=== PATIENT | female | born 1955 | race Caucasian/White ===

== ENCOUNTER 2017-12-09 11:48 | Day surgery (SDC) | payer OTHER ==
[~2017-12-09] VITALS: Ht 154.9 cm; Wt 107.0 kg
[~2017-12-09 11:48] MED LIST: AMOCLA500 PO; ATOR10 PO; BUME2 PO; FOLI1 PO; GABA100 PO; K-Dur20 MEQ PO; LACT10SY PO; LEVSOD50 PO; Lasix40 MG PO; MERIBIN5 MG PO; METO2.5 PO; MUPI2TC TOP; Mupirocin22 GM TP; NADO20 PO; Omeprazole20 M1 PO; POTCHL20ER PO; Prinivil10 MG PO; ROPI.25 PO; SPIR25 PO; SULTRIDS PO; TRAM50 PO
== END 2017-12-09 13:15 | disposition home or self-care (01) ==
LOC: ORSCSDS 11:48
PROVIDERS: Internal Medicine Gastroenterology
PROC: 0DJ08ZZ Inspection of Upper Intestinal Tract, Via Natural or Artificial Opening Endoscopic (ICD-10-PCS; principal; 2017-12-09 13:00)
DX: I85.00 Esophageal varices without bleeding (principal); K76.6 Portal hypertension; K31.89 Other diseases of stomach and duodenum; I10 Essential (primary) hypertension; E11.9 Type 2 diabetes mellitus without complications; K20.9 Esophagitis, unspecified; G47.33 Obstructive sleep apnea (adult) (pediatric); K74.60 Unspecified cirrhosis of liver; E66.01 Morbid (severe) obesity due to excess calories; Z68.41 Body mass index [BMI] 40.0-44.9, adult; Z79.899 Other long term (current) drug therapy
CPT/HCPCS: 82947; J7120

== ENCOUNTER 2018-10-22 10:18 | Day surgery (SDC) | payer OTHER ==
[~2018-10-22] VITALS: Ht 154.9 cm; Wt 117.6 kg
[~2018-10-22 10:18] MED LIST changes: +BUME2; +NADO20
--- NOTE | 2018-10-22 12:04 | NUR ---
10/22/18 1204 Lela López LATE ENTRY: PT UPDATED OF DELAY IN START TIME DUE TO LAST CASE RUNNING LONGER THAN EXPECTED. BED IN LOW, LOCKED POSITION-CALL LIGHT IN REACH.
== END 2018-10-22 12:50 | disposition home or self-care (01) ==
LOC: ORSCSDS 10:18
PROVIDERS: Internal Medicine Gastroenterology
PROC: 0DB98ZX Excision of Duodenum, Via Natural or Artificial Opening Endoscopic, Diagnostic (ICD-10-PCS; principal; 2018-10-22 11:30)
DX: K74.69 Other cirrhosis of liver (principal); I85.00 Esophageal varices without bleeding; K76.6 Portal hypertension; K76.0 Fatty (change of) liver, not elsewhere classified; G47.33 Obstructive sleep apnea (adult) (pediatric); I10 Essential (primary) hypertension; E11.9 Type 2 diabetes mellitus without complications; E78.5 Hyperlipidemia, unspecified; E66.01 Morbid (severe) obesity due to excess calories; Z68.42 Body mass index [BMI] 45.0-49.9, adult; Z79.899 Other long term (current) drug therapy
CPT/HCPCS: 82947; 88305; J7120

== ENCOUNTER → 2019-06-29 | Outpatient (CLI) | payer OTHER ==
[~2019-06-29] MED LIST changes: +ATOR20; +Aspir 8181 MG PO; +Bumetanide1 MG PO; +LACT10SY; +METO25ER PO
[2019-06-29 11:46] LABS: BASOPHILS ABSOLUTE AUTO 0.06 K/mm3 (0.00-0.23); BASOPHILS PERCENT AUTO 1 % (0-2); EOSINOPHILS ABSOLUTE AUTO 0.15 K/mm3 (0.00-0.68); EOSINOPHILS PERCENT AUTO 3 % (0-6); Hemoglobin 11.8 g/dL (11.5-16.0); IMMATURE GRAN ABSOLUTE AUTO 0.02 K/mm3 (0.00-0.10); IMMATURE GRAN PERCENT AUTO 0 % (0-1); LYMPHOCYTES ABSOLUTE AUTO 1.09 K/mm3 (0.84-5.20); LYMPHOCYTES PERCENT AUTO 24 % (21-46); MONOCYTES ABSOLUTE AUTO 0.41 K/mm3 (0.16-1.47); MONOCYTES PERCENT AUTO 9 % (4-13); Mean Corpuscular HGB 32.2 pg (26.0-34.0); Mean Corpuscular HGB Conc 32.8 g/dL (31.5-36.5); Mean Corpuscular Volume 98 fL (80-100); Mean Platelet Volume 11.4 fL (9.1-12.4); NEUTROPHILS PERCENT AUTO 62 % (41-73); Platelet Count 70 K/mm3 (150-400); RDW Coefficient Variation 15.6 % (11.7-14.2); RDW Standard Deviation 56.5 fL (35.1-46.3); Red Blood Cell Count 3.66 M/mm3 (3.80-5.20); White Blood Cell Count 4.53 K/mm3 (4.00-11.30)
[2019-06-29 12:14] LABS: Alanine Aminotransfer (ALT/SGP 26 U/L (12-78); Albumin, Blood 2.5 g/dL (3.4-5.0); Albumin/Globulin Ratio 0.5 (0.8-1.8); Alk Phos 102 U/L (50-136); Anion Gap 8 mmol/L (6-16); Aspartate Aminotrans (AST/SGOT 38 U/L (12-37); Bilirubin, Total 2.4 mg/dL (0.1-1.0); Blood Urea Nitrogen 8 mg/dL (8-24); Bun/Creatinine Ratio 9.5 (12.0-20.0); CO2, Blood 24 mmol/L (21-32); Calcium, Blood 8.6 mg/dL (8.5-10.1); Chloride, Blood 108 mmol/L (98-108); Creatinine, Blood 0.85 mg/dL (0.40-1.00); Free Thyroxine 1.14 ng/dL (0.70-1.60); Globulin, Blood 4.6 g/dL (2.2-4.0); Glomerular Filtration Rate >60 (60-); Glucose, Blood 117 mg/dL (70-99); Sodium, Blood 140 mmol/L (136-145); Total Protein, Blood 7.1 g/dL (6.4-8.2)
== END ==
LOC: LAB SHORT 11:29 → LAB 11:29
PROVIDERS: Nurse Practitioner Family
DX: E03.9 Hypothyroidism, unspecified (principal); I12.9 Hypertensive chronic kidney disease with stage 1 through stage 4 chronic kidney disease, or unspecified chronic kidney disease; N18.3 Chronic kidney disease, stage 3 (moderate)
CPT/HCPCS: 80053; 84439; 84443; 85025

== ENCOUNTER 2019-08-26 07:22 | Day surgery (SDC) | payer OTHER ==
[~2019-08-26] VITALS: Wt 124.3 kg
[~2019-08-26 07:22] MED LIST changes: -ATOR20; -Aspir 8181 MG PO; -Bumetanide1 MG PO; -LACT10SY; -METO25ER PO
[2019-08-26] MEDS ORDERED: SPIR25 PO (07:46)
[2019-08-26] MEDS ORDERED: Bumetanide1 MG PO (07:48)
[2019-08-26] MEDS ORDERED: FOLI1 PO (07:48)
[2019-08-26] MEDS ORDERED: METO25ER PO (08:15)
[2019-08-26] MEDS ORDERED: ATOR20 (08:16)
[2019-08-26] MEDS ORDERED: Aspir 8181 MG PO (08:17)
[2019-08-26] MEDS ORDERED: LACT10SY (08:18)
--- NOTE | 2019-08-26 08:31 | NUR ---
Ambulatory in Day Surgery History, Chart, Medications and Allergies reviewed before start of procedure.Lungs clear T/O to Auscultation. Patient confirms NPO status and agrees with scheduled surgery. Patient States Post-Procedure ride home has been arranged.
--- NOTE | 2019-08-26 09:10 | NUR ---
08/26/19 0910 Melva Byrd History, Chart, Medications and Allergies reviewed before start of procedure. MONITOR INTACT WITH CONTINUOUS PULSE OXIMETRY AND INTERMITTENT BP.
--- NOTE | 2019-08-26 10:28 | NUR ---
Patient up to Ambulate independently. Gait steady. Discharge instructions reviewed with patient. Patient verbalizes understanding. Copy given to patient to take home. Discharged via wheelchair to private car for ride home.
== END 2019-08-26 10:18 | disposition home or self-care (01) ==
LOC: ORSCMMR 07:22 → ORD 09:00 → ORSCMMR 09:00
PROVIDERS: Internal Medicine Gastroenterology
PROC: 0DBL8ZX Excision of Transverse Colon, Via Natural or Artificial Opening Endoscopic, Diagnostic (ICD-10-PCS; principal; 2019-08-26 09:00)
PROC: 0DBH8ZX Excision of Cecum, Via Natural or Artificial Opening Endoscopic, Diagnostic (ICD-10-PCS; principal; 2019-08-26 09:00)
PROC: 0DBK8ZX Excision of Ascending Colon, Via Natural or Artificial Opening Endoscopic, Diagnostic (ICD-10-PCS; principal; 2019-08-26 09:00)
DX: Z12.11 Encounter for screening for malignant neoplasm of colon (principal); D12.2 Benign neoplasm of ascending colon; D12.3 Benign neoplasm of transverse colon; K64.8 Other hemorrhoids; Z86.010 Personal history of colon polyps; K76.0 Fatty (change of) liver, not elsewhere classified; E03.9 Hypothyroidism, unspecified; I10 Essential (primary) hypertension; E11.9 Type 2 diabetes mellitus without complications; E78.5 Hyperlipidemia, unspecified; G47.33 Obstructive sleep apnea (adult) (pediatric); E66.01 Morbid (severe) obesity due to excess calories; Z68.43 Body mass index [BMI] 50.0-59.9, adult; Z79.899 Other long term (current) drug therapy
CPT/HCPCS: 82947; 88305; J2704; J7120

== ENCOUNTER 2019-10-10 05:51 | Day surgery (SDC) | payer OTHER ==
[~2019-10-10] VITALS: Ht 154.9 cm; Wt 118.0 kg
[~2019-10-10 05:51] MED LIST changes: +ATOR20; +Aspir 8181 MG PO; +Bumetanide1 MG PO; +Isosorbide Mono30 MG PO; +LACT10SY; +METO25ER PO
--- NOTE | 2019-10-10 08:05 | NUR ---
ASSUMED CARE OF PATIENT.
--- NOTE | 2019-10-10 09:30 | NUR ---
PT C/O RIGHT ARM FEELING SWOLLEN. 2 CC AIR REMOVED FROM TR BAND. RIGHT ARM MASSAGED. ARM IS SOFT. NO BLEEDING AT SITE.
--- NOTE | 2019-10-10 09:43 | NUR ---
ADDITIONAL 3 CC AIR REMOVED FROM TR BAND.
--- NOTE | 2019-10-10 10:00 | NUR ---
REMAINDER OF AIR REMOVED FROM TR BAND. NO BLEEDING AT SITE. RIGHT ARM SOFT NONTENDER.
[2019-10-10] MEDS ORDERED: SPIR25 PO (10:44)
[2019-10-10] MEDS ORDERED: POTCHL20ER PO (10:45)
--- NOTE | 2019-10-10 10:48 | NUR ---
AMBULATED TO BATHROOM. TOLERATED WELL. DRESSED FOR DISCHARGE.
--- NOTE | 2019-10-10 11:00 | NUR ---
TR BAND REMOVED. CLOT DOT AND IMMOBILIZER APPLIED.
--- NOTE | 2019-10-10 11:05 | NUR ---
DISCHARGE INSTRUCTIONS GIVEN WITH VERBAL AND WRITTEN UNDERSTANDING.
--- NOTE | 2019-10-10 11:30 | NUR ---
DISCHARGED HOME. AMBULATED TO [facility]. SLING APPLIED TO RIGHT ARM. DRIVING.
== END 2019-10-10 11:30 | disposition home or self-care (01) ==
LOC: MHTC 05:51
PROC: 4A023N7 Measurement of Cardiac Sampling and Pressure, Left Heart, Percutaneous Approach (ICD-10-PCS; principal; 2019-10-10)
PROC: B2111ZZ Fluoroscopy of Multiple Coronary Arteries using Low Osmolar Contrast (ICD-10-PCS; principal; 2019-10-10)
DX: I25.119 Atherosclerotic heart disease of native coronary artery with unspecified angina pectoris (principal); R06.00 Dyspnea, unspecified; I12.9 Hypertensive chronic kidney disease with stage 1 through stage 4 chronic kidney disease, or unspecified chronic kidney disease; N18.2 Chronic kidney disease, stage 2 (mild); E11.22 Type 2 diabetes mellitus with diabetic chronic kidney disease; E78.5 Hyperlipidemia, unspecified; E66.01 Morbid (severe) obesity due to excess calories; Z88.7 Allergy status to serum and vaccine; Z79.82 Long term (current) use of aspirin; Z79.899 Other long term (current) drug therapy
CPT/HCPCS: 93454; 99152; C1769; C1894; J1644; J2250; J3010; J7030; Q9967

== ENCOUNTER 2020-01-20 09:28 | Day surgery (SDC) | payer OTHER ==
[~2020-01-20] VITALS: Ht 154.9 cm; Wt 106.4 kg
[~2020-01-20 09:28] MED LIST changes: -ATOR20; +ATOR20 PO; +ONDA4 PO; +PANTOPRAZOLE SO40 M1 PO
[2020-01-20] MEDS ORDERED: TORSE20 PO (10:20)
[2020-01-20] MEDS ORDERED: METO5 PO (10:20)
--- NOTE | 2020-01-20 10:45 | NUR ---
History, Chart, Medications and Allergies reviewed before start of procedure. Lungs clear T/O to Auscultation. Patient confirms NPO status and agrees with scheduled surgery. Pre-Op teaching done. Pt verbalizes understanding. Patient States Post-Procedure ride home has been arranged.
--- NOTE | 2020-01-20 11:00 | NUR ---
01/20/20 Melva Vila PROCEDURE ROOM ENDO ROOM #1.
--- NOTE | 2020-01-20 11:44 | NUR ---
1140- UP TO DRESS INDEPENDANTLY. STATES SHE DOES NOT FEEL DIZZY SITTING ON EDGE OF BED. GAIT STEADY 1145- REPORT GIVEN TO RADHA AREVALO, RADHA LARSEN RN.
--- NOTE | 2020-01-20 11:51 | NUR ---
PT A&OX4, VSS, BOB PO, DENIES N&V, DENIES PAIN AT THIS TIME, IV DC'D. Discharge instructions reviewed with patient. Patient verbalizes understanding. Copy given to patient to take home. Patient States Post-Procedure ride home has been arranged. TOOK PT OUT VIA WC.
== END 2020-01-20 23:27 | disposition home or self-care (01) ==
LOC: ORSCMMR 09:28 → ORD 12:00 → ORSCMMR 12:00
PROVIDERS: Internal Medicine Gastroenterology
PROC: 06L38CZ Occlusion of Esophageal Vein with Extraluminal Device, Via Natural or Artificial Opening Endoscopic (ICD-10-PCS; principal; 2020-01-20 11:00)
DX: K74.60 Unspecified cirrhosis of liver (principal); Z13.810 Encounter for screening for upper gastrointestinal disorder; K76.6 Portal hypertension; K31.89 Other diseases of stomach and duodenum; E78.5 Hyperlipidemia, unspecified; G47.33 Obstructive sleep apnea (adult) (pediatric); E11.9 Type 2 diabetes mellitus without complications; I25.10 Atherosclerotic heart disease of native coronary artery without angina pectoris; I10 Essential (primary) hypertension; E66.01 Morbid (severe) obesity due to excess calories; Z68.43 Body mass index [BMI] 50.0-59.9, adult; Z79.82 Long term (current) use of aspirin; Z79.899 Other long term (current) drug therapy
CPT/HCPCS: 82947; J2704; J7120

== ENCOUNTER 2020-01-24 13:34 | Inpatient (IN) | payer OTHER ==
[~2020-01-24] VITALS: Ht 154.9 cm; Wt 101.4 kg
[~2020-01-24 13:34] MED LIST changes: -CEPH500 PO; -Klor-Con 1010 MEQ PO; -MAG6464 MG PO; -MIRALAX17 G2 PO; -SENNA PLUS TAB1 EACH PO
[2020-01-24] MEDS ORDERED: TORSE20 PO (13:59)
[2020-01-24] MEDS ORDERED: Klor-Con 1010 MEQ PO (13:59)
[2020-01-24] MEDS ORDERED: MAG6464 MG PO (14:00)
[2020-01-24 14:41] LABS: Magnesium, Blood 1.8 mg/dL (1.6-2.4); Phosphorus, Blood 2.7 mg/dL (2.5-4.9)
[2020-01-24 17:45] LABS: Source, Urine Clean Catch
[2020-01-24 17:48] LABS: Bilirubin, Urine Neg (Neg); Blood, Urine 1+ (Neg); Glucose Qualitative, Urine Neg (Neg); Ketones, Urine Neg (Neg); Leukocyte Esterase, Urine Neg (Neg); Nitrite, Urine Neg (Neg); Protein, Urine Neg (Neg); Specific Gravity, Urine 1.015 (1.003-1.022); Urobilinogen, Urine 3+ (Normal)
[2020-01-24 17:57] LABS: Appearance, Urine Clear (Clear); Color, Urine Amber (P-Yellow)
[2020-01-24 17:58] LABS: White Blood Cells, Urine 0-2 /hpf (0-5)
[2020-01-24 17:59] LABS: Bacteria Many /hpf; Squamous Epithelial Cells Few /hpf (Few)
--- NOTE | 2020-01-24 18:43 | NUR ---
PT ARRIVAL... PT ARRIVED ON UNIT VIA GURNEY. PT IS A&Ox3 WITH MOMENTS OF FORGETFULNESS AND NONSENSICAL STATEMENTS. PT IS AWARE OF THIS AND BECOMES EMBARRASED BY THIS. PT'S VS STABLE AT THIS TIME. PT DENIES CHEST PAIN/PRESSURES N/V OR SOB. PT IS SBA FROM THE GURNEY TO THE BED. L/S CLEAR T/O ON RA. BT PRESENT AND NORMOACTIVE, ABD IS MILD DISTENDED AND TENDER TO PALP. TRACE EDEMA IS NOTED TO THE PT'S BLE. CALL LIGHT IN REACH WILL CONTINUE TO MONITOR UNTIL REPORT IS GIVEN TO ONCOMING RN.
[2020-01-24 18:58] LABS: U Amphetamine Screen Not Detected; U Barbituate Screen Not Detected; U Benzodiazapine Screen Not Detected; U Buprenorphine Screen Not Detected; U Cannabinoids Screen Not Detected; U Cocaine Screen Not Detected; U Methadone Screen Not Detected; U Methamphetamine Screen Not Detected; U Opiates Screen DETECTED; U Oxycodone Screen Not Detected; U Phencyclidine Screen Not Detected; U Propoxyphene Screen Not Detected
--- NOTE | 2020-01-24 19:00 | NUR ---
Assumed care Received report from MICKEY Garay and care was assumed at 1900. VSS. SBP 130. Pt is alert and oriented, conversing with staff; response time is slightly delayed, but pt is answering questions appropriately. Potassium and NS infusing into left forearm IV, per orders/eMAR. At this time, pt denies CP/pressure, palpitations, SOB, nausea, vomiting and/or abdominal pain. No acute concerns to note at shift start. See shift assessment for detailed assessment.
[2020-01-24 22:41] LABS: Potassium, Blood 2.7 mmol/L (3.5-5.5); Troponin I 0.141 ng/mL (0.000-0.040)
[2020-01-25 04:21] LABS: BASOPHILS ABSOLUTE AUTO 0.04 K/mm3 (0.00-0.23); BASOPHILS PERCENT AUTO 1 % (0-2); EOSINOPHILS ABSOLUTE AUTO 0.19 K/mm3 (0.00-0.68); EOSINOPHILS PERCENT AUTO 4 % (0-6); Hematocrit 30.9 % (33.0-51.0); Hemoglobin 10.3 g/dL (11.5-16.0); IMMATURE GRAN ABSOLUTE AUTO 0.03 K/mm3 (0.00-0.10); IMMATURE GRAN PERCENT AUTO 1 % (0-1); LYMPHOCYTES ABSOLUTE AUTO 1.09 K/mm3 (0.84-5.20); LYMPHOCYTES PERCENT AUTO 21 % (21-46); MONOCYTES ABSOLUTE AUTO 0.72 K/mm3 (0.16-1.47); MONOCYTES PERCENT AUTO 14 % (4-13); Mean Corpuscular HGB 32.6 pg (26.0-34.0); Mean Corpuscular HGB Conc 33.3 g/dL (31.5-36.5); Mean Platelet Volume 11.4 fL (9.1-12.4); NEUTROPHILS ABSOLUTE AUTO 3.08 K/mm3 (1.96-9.15); NEUTROPHILS PERCENT AUTO 60 % (41-73); Platelet Count 79 K/mm3 (150-400); RDW Coefficient Variation 15.8 % (11.7-14.2); RDW Standard Deviation 56.5 fL (35.1-46.3); Red Blood Cell Count 3.16 M/mm3 (3.80-5.20); White Blood Cell Count 5.15 K/mm3 (4.00-11.30)
[2020-01-25 04:24] LABS: Mean Corpuscular Volume 98 fL (80-100)
[2020-01-25 04:35] LABS: Albumin, Blood 1.9 g/dL (3.4-5.0); Anion Gap 4 mmol/L (6-16); Blood Urea Nitrogen 30 mg/dL (8-24); Bun/Creatinine Ratio 17.4 (12.0-20.0); CO2, Blood 43 mmol/L (21-32); Calcium, Blood 7.9 mg/dL (8.5-10.1); Chloride, Blood 83 mmol/L (98-108); Creatinine, Blood 1.72 mg/dL (0.40-1.00); Glomerular Filtration Rate 32 (60-); Glucose, Blood 108 mg/dL (70-99); Magnesium, Blood 1.7 mg/dL (1.6-2.4); Phosphorus, Blood 2.2 mg/dL (2.5-4.9); Potassium, Blood 2.7 mmol/L (3.5-5.5); Sodium, Blood 130 mmol/L (136-145)
--- NOTE | 2020-01-25 06:21 | NUR ---
Shift Summary No acute events and/or changes occurred throughout the shift. VSS. SBP 123. O2 saturation >95% on RA. No changes in mentation were noted; pt remained alert and oriented, conversing with staff and answering question appropriately. Pt with intermittent complaints of nausea and abdominal pain. Zofran was administered per orders/eMAR, in addition to patient-initated bedside dangling and ambulation to the bathroom which she reported as therapeutic. Recent labs revealed no improvement in potassium level. Dr. Bejarano was informed and potassium was continued per orders. Pt denies CP/pressure, palpitation, SOB, diarrhea, and/or vomiting. Overall, pt is deconditioned with generalized weakness, requiring SBA. No acute changes and/or concerns this shift. Refer to shift assessment for detailed assessment.
--- NOTE | 2020-01-25 08:38 | NUR ---
AM NOTE... ASSUMED CARE OF PT APROX 0700. PT IS A&Ox4 AND SBA IN THE ROOM. PT WAS ADMITTED FOR HYPOKALEMIA. PT'S LAST POTASSIUM LEVEL WAS AT 2.7. PT'S VS STABLE AT THIS TIME. PT STATES "I FEEL WAY WORSE THAN I DID YESTERDAY." PT C/O OF INCREASED WEAKENESS AND SOME NAUSEA THIS AM. PT HAS 1+ EDEMA TO HER BLE AND BUE WELL GENERALIZED. BT PRESENT AND HYPOACTIVE ABD IS MODERATLY DISTENDED AND TENDER TO PALP. POTASSIUM GTT HAD TO BE SLOWED DOWN D/T PAIN AT THE IV SITE, WILL ATTEMPTED TO GAIN NEW IV ACCESS. CALL LIGHT IN REACH WILL CONTINUE TO MONITOR.
[2020-01-25 12:14] LABS: Albumin, Blood 1.9 g/dL (3.4-5.0); Anion Gap 6 mmol/L (6-16); Blood Urea Nitrogen 28 mg/dL (8-24); Bun/Creatinine Ratio 16.7 (12.0-20.0); CO2, Blood 42 mmol/L (21-32); Calcium, Blood 8.1 mg/dL (8.5-10.1); Chloride, Blood 85 mmol/L (98-108); Creatinine, Blood 1.68 mg/dL (0.40-1.00); Glomerular Filtration Rate 33 (60-); Glucose, Blood 139 mg/dL (70-99); Phosphorus, Blood 2.1 mg/dL (2.5-4.9); Potassium, Blood 2.6 mmol/L (3.5-5.5); Sodium, Blood 133 mmol/L (136-145)
--- NOTE | 2020-01-25 18:44 | NUR ---
SHIFT SUMMARY... NO ACUTE NEGATIVE CHANGES NOTED ON TELE. VS HAVE BEEN STABLE T/O SHIFT. PT HAS BEEN SWITCHED TO PO POTASSIUM D/T PAIN AND BURNING AT THE IV SITE. PT HAS BEEN UP IN THE CHAIR FOR MEALS AND TO THE BSC. PT STATES SHE FEELS MORE "TIRED" TODAY THAN SHE WAS YESTERDAY BUT ALSO "FEELS BETTER." CALL LIGHT IN REACH WILL CONTINUE TO MONITOR UNTIL REPORT IS GIVEN TO ONCOMING RN.
[2020-01-26 03:37] LABS: Hematocrit 31.4 % (33.0-51.0); Hemoglobin 10.4 g/dL (11.5-16.0)
[2020-01-26 03:54] LABS: Albumin, Blood 1.9 g/dL (3.4-5.0); Anion Gap 2 mmol/L (6-16); Blood Urea Nitrogen 25 mg/dL (8-24); Bun/Creatinine Ratio 15.5 (12.0-20.0); CO2, Blood 41 mmol/L (21-32); Chloride, Blood 94 mmol/L (98-108); Creatinine, Blood 1.61 mg/dL (0.40-1.00); Glomerular Filtration Rate 34 (60-); Glucose, Blood 99 mg/dL (70-99); Magnesium, Blood 1.9 mg/dL (1.6-2.4); Sodium, Blood 137 mmol/L (136-145)
--- NOTE | 2020-01-26 06:05 | NUR ---
END OF SHIFT SUMMARY NO ACUTE CHANGES OCCURRED DURING THIS SHIFT. VSS. OXYGEN SAT >92% ON RA. PT UP SEVERAL TIME TO AMBULATE TO THE BATHROOM. PT USED WALKER TO AMBULATE. PT MORNING LABS SHOW POTASSIUM UNCHANGED AT 3. PT DENIES PAIN, CHEST PAIN, SOB. WILL CONTINUE TO MONITOR UNTIL END OF SHIFT. CALL LIGHT WITHIN REACH. BED IN LOWEST POSITION.
--- NOTE | 2020-01-26 08:16 | NUR ---
AM NOTE... ASSUMED CARE OF PT APROX 0700. PT IS A&Ox4 WITH MOMENTS OF FORGETFULNESS. PT WAS ADMITTED FOR HYPOKALEMIA, CURRENT LABS SHOW K+ IS A 3.0, PROVIDERS AWARE. L/S CLEAR T/O ON RA. BT PRESENT AND HYPOACTIVE ABD IS MOD DISTENDED SLIGHLTY FIRM BUT NONTENDER TO PALP. PT STATES SHE HAS NOT HAD A BM SINCE THE FIRST, WILL START BOWEL CARE. PT HAS 1+ EDEMA TO HER BLE AND BUE. SKIN HAS A SLIGHT JAUNDICED LOOK. PT HAS BEEN SBA W/FWW TO THE CHAIR AND INTO THE BATHROOM. CALL LIGHT IN REACH WILL CONTINUE TO MONITOR.
--- NOTE | 2020-01-26 17:30 | NUR ---
SHIFT SUMMARY- PT IS ALERT AND PLESANT SHE HAS SOME INTERMITENT CONFUSTION SHE WAS TRANSFERED FROM PCU. SHE DENIES ANY PAIN AT THIS TIME. SHE IS USING THE BEDSIDE CAMMODE. SHE IS EATING AND DRINKING WELL
[2020-01-27 05:02] LABS: Hematocrit 33.1 % (33.0-51.0); Hemoglobin 10.9 g/dL (11.5-16.0)
[2020-01-27 05:18] LABS: Anion Gap 3 mmol/L (6-16); Blood Urea Nitrogen 19 mg/dL (8-24); Bun/Creatinine Ratio 12.9 (12.0-20.0); CO2, Blood 35 mmol/L (21-32); Calcium, Blood 8.5 mg/dL (8.5-10.1); Chloride, Blood 98 mmol/L (98-108); Creatinine, Blood 1.47 mg/dL (0.40-1.00); Glomerular Filtration Rate 38 (60-); Glucose, Blood 112 mg/dL (70-99); Magnesium, Blood 1.8 mg/dL (1.6-2.4); Phosphorus, Blood 2.3 mg/dL (2.5-4.9); Potassium, Blood 3.5 mmol/L (3.5-5.5); Sodium, Blood 136 mmol/L (136-145)
--- NOTE | 2020-01-27 05:54 | NUR ---
SHIFT SUMMARY ASSUMED CARE OF PT AT 1900. PT IS A/OX3 WITH SOME CONFUSION. DENIES N/T IN EXTREMITES. HEART SOUNDS REGULAR, TELE SHOWS SINUS @ 72, DENIES CP. LUNG SOUNDS CLEAR, DENIES SOB. PT IS 1P SBA TO BATHROOM, URINE CLEAR AND YELLOW. C/O BEING CONTIPATED, MEDICATED PER EMAR. POWERGLIDES DRAWS BLOOD. NOTIFIED DR BALBUENA OF IMPROVED POTASSIUM @ 4.0. STATED TO MONITOR MORNING LABS. NO ACUTE EVENTS DURING THE NIGHT. PT SLEPT MOST OF THE NIGHT. CALL LIGHT IN REACH, BED IN LOWEST POSTION, WILL CONTINUE TO MONITOR UNTIL DAYSHIFT NURSE ARRIVES.
[2020-01-27] MEDS ORDERED: SENNA PLUS TAB1 EACH PO (16:34)
[2020-01-27] MEDS ORDERED: LACT10SY PO (16:35)
[2020-01-27] MEDS ORDERED: MIRALAX17 G2 PO (16:39)
[2020-01-27] MEDS ORDERED: CEPH500 PO (16:39)
--- NOTE | 2020-01-27 19:59 | NUR ---
PT DISCHARGED FROM THE UNIT. LEFT VIA WHEELCHAIR. WILL DRIVE HOME. MEDICATIONS FAXED TO PHARMACY. INSTRUCTED ON FOLLOW UP APTS. IV AND POWERGLIDE REMOVED.
== END 2020-01-27 18:56 | disposition home or self-care (01) | DRG 683 ==
LOC: ER 13:34 → PCU 16:33 → ERHOLD 16:33 → PCU 18:08 → MEDS 01-26 12:15
PROVIDERS: Internal Medicine Nephrology; Physician Assistant; ADMIT Student in an Organized Health Care Education/Training Program
DX: N17.9 Acute kidney failure, unspecified (principal); N39.0 Urinary tract infection, site not specified; C92.10 Chronic myeloid leukemia, BCR/ABL-positive, not having achieved remission; Z68.41 Body mass index [BMI] 40.0-44.9, adult; E87.1 Hypo-osmolality and hyponatremia; E87.6 Hypokalemia; N18.3 Chronic kidney disease, stage 3 (moderate); E11.22 Type 2 diabetes mellitus with diabetic chronic kidney disease; B96.20 Unspecified Escherichia coli [E. coli] as the cause of diseases classified elsewhere; K74.69 Other cirrhosis of liver; E66.9 Obesity, unspecified; I12.9 Hypertensive chronic kidney disease with stage 1 through stage 4 chronic kidney disease, or unspecified chronic kidney disease; K72.90 Hepatic failure, unspecified without coma; E03.9 Hypothyroidism, unspecified; I25.10 Atherosclerotic heart disease of native coronary artery without angina pectoris; D63.1 Anemia in chronic kidney disease; E83.39 Other disorders of phosphorus metabolism; E88.09 Other disorders of plasma-protein metabolism, not elsewhere classified; E86.9 Volume depletion, unspecified; R79.89 Other specified abnormal findings of blood chemistry; N25.81 Secondary hyperparathyroidism of renal origin; Z79.82 Long term (current) use of aspirin
CPT/HCPCS: 36415; 76770; 80069; 81001; 82140; 82947; 83735; 84100; 84132; 84439; 84443; 84484; 85014; 85018; 85025; 87077; 87086; 87186; 93005; 93010; 96365; 97116; 97162; 99285-25; A9270; A9270-GY; G0480; J1650; J3480; J7030; J7050; J7060

== ENCOUNTER → 2020-01-24 | Outpatient (CLI) | payer OTHER ==
[~2020-01-24] MED LIST changes: +CEPH500 PO; +Klor-Con 1010 MEQ PO; +MAG6464 MG PO; +METO5 PO; +MIRALAX17 G2 PO; +SENNA PLUS TAB1 EACH PO; +TORSE20 PO
[2020-01-24 12:50] LABS: Alanine Aminotransfer (ALT/SGP 27 U/L (12-78); Albumin, Blood 2.5 g/dL (3.4-5.0); Albumin/Globulin Ratio 0.4 (0.8-1.8); Alk Phos 120 U/L (40-126); Aspartate Aminotrans (AST/SGOT 60 U/L (12-37); Bilirubin, Total 5.2 mg/dL (0.1-1.0); Blood Urea Nitrogen 33 mg/dL (8-24); Bun/Creatinine Ratio 14.4 (12.0-20.0); Chloride, Blood 85 mmol/L (98-108); Creatinine, Blood 2.29 mg/dL (0.40-1.00); Globulin, Blood 6.4 g/dL (2.2-4.0); Glomerular Filtration Rate 22 (60-); Glucose, Blood 123 mg/dL (70-99); Sodium, Blood 134 mmol/L (136-145); Total Protein, Blood 8.9 g/dL (6.4-8.2)
[2020-01-24 12:51] LABS: Anion Gap Unable to Calculate mmol/L (6-16)
[2020-01-24 12:52] LABS: CO2, Blood 48 mmol/L (21-32); Potassium, Blood 1.9 mmol/L (3.5-5.5)
[2020-01-24 12:54] LABS: BASOPHILS ABSOLUTE AUTO 0.04 K/mm3 (0.00-0.23); BASOPHILS PERCENT AUTO 1 % (0-2); EOSINOPHILS ABSOLUTE AUTO 0.06 K/mm3 (0.00-0.68); EOSINOPHILS PERCENT AUTO 1 % (0-6); Hematocrit 35.6 % (33.0-51.0); Hemoglobin 12.3 g/dL (11.5-16.0); IMMATURE GRAN ABSOLUTE AUTO 0.03 K/mm3 (0.00-0.10); IMMATURE GRAN PERCENT AUTO 1 % (0-1); LYMPHOCYTES ABSOLUTE AUTO 0.66 K/mm3 (0.84-5.20); LYMPHOCYTES PERCENT AUTO 13 % (21-46); MONOCYTES ABSOLUTE AUTO 0.73 K/mm3 (0.16-1.47); MONOCYTES PERCENT AUTO 14 % (4-13); Mean Corpuscular HGB Conc 34.6 g/dL (31.5-36.5); Mean Corpuscular Volume 95 fL (80-100); NEUTROPHILS ABSOLUTE AUTO 3.58 K/mm3 (1.96-9.15); NEUTROPHILS PERCENT AUTO 70 % (41-73); RDW Coefficient Variation 15.2 % (11.7-14.2); Red Blood Cell Count 3.73 M/mm3 (3.80-5.20)
[2020-01-24 13:04] LABS: Mean Platelet Volume 10.5 fL (9.1-12.4); Platelet Count 97 K/mm3 (150-400)
== END ==
LOC: LAB EV 12:36 → LAB SHORT 12:36
PROVIDERS: Emergency Medicine
DX: K72.90 Hepatic failure, unspecified without coma (principal); R11.2 Nausea with vomiting, unspecified
CPT/HCPCS: 80053; 82140; 83690; 85025

== ENCOUNTER 2020-02-03 13:33 | Emergency (ER) | payer OTHER ==
[~2020-02-03] VITALS: Ht 154.9 cm; Wt 101.6 kg
[~2020-02-03 13:33] MED LIST changes: +CEPH500 PO; +Klor-Con 1010 MEQ PO; +MAG6464 MG PO; +MIRALAX17 G2 PO; +SENNA PLUS TAB1 EACH PO
[2020-02-03 15:00] LABS: BASOPHILS ABSOLUTE AUTO 0.07 K/mm3 (0.00-0.23); BASOPHILS PERCENT AUTO 1 % (0-2); EOSINOPHILS ABSOLUTE AUTO 0.07 K/mm3 (0.00-0.68); EOSINOPHILS PERCENT AUTO 1 % (0-6); Hematocrit 41.8 % (33.0-51.0); Hemoglobin 13.8 g/dL (11.5-16.0); IMMATURE GRAN ABSOLUTE AUTO 0.04 K/mm3 (0.00-0.10); IMMATURE GRAN PERCENT AUTO 0 % (0-1); LYMPHOCYTES ABSOLUTE AUTO 1.47 K/mm3 (0.84-5.20); LYMPHOCYTES PERCENT AUTO 16 % (21-46); MONOCYTES ABSOLUTE AUTO 0.95 K/mm3 (0.16-1.47); MONOCYTES PERCENT AUTO 10 % (4-13); Mean Corpuscular HGB 32.5 pg (26.0-34.0); Mean Corpuscular Volume 99 fL (80-100); Mean Platelet Volume 10.9 fL (9.1-12.4); NEUTROPHILS ABSOLUTE AUTO 6.83 K/mm3 (1.96-9.15); NEUTROPHILS PERCENT AUTO 73 % (41-73); Platelet Count 95 K/mm3 (150-400); RDW Coefficient Variation 16.7 % (11.7-14.2); RDW Standard Deviation 60.3 fL (35.1-46.3); Red Blood Cell Count 4.24 M/mm3 (3.80-5.20); White Blood Cell Count 9.43 K/mm3 (4.00-11.30)
[2020-02-03 15:30] LABS: Albumin, Blood 2.1 g/dL (3.4-5.0); Albumin/Globulin Ratio 0.3 (0.8-1.8); Bilirubin, Total 3.3 mg/dL (0.1-1.0); Bun/Creatinine Ratio 17.3 (12.0-20.0); Calcium, Blood 8.6 mg/dL (8.5-10.1); Creatinine, Blood 2.31 mg/dL (0.40-1.00); Globulin, Blood 6.5 g/dL (2.2-4.0); Potassium, Blood 4.6 mmol/L (3.5-5.5); Total Protein, Blood 8.6 g/dL (6.4-8.2)
[2020-02-03 16:17] LABS: Source, Urine Clean Catch
[2020-02-03 16:20] LABS: Blood, Urine 3+ (Neg); Glucose Qualitative, Urine Neg (Neg); Ketones, Urine 1+ (Neg); Leukocyte Esterase, Urine 1+ (Neg); Nitrite, Urine Neg (Neg); Protein, Urine 2+ (Neg); Urobilinogen, Urine 1+ (Normal)
[2020-02-03 16:40] LABS: Appearance, Urine Hazy (Clear); Bilirubin, Urine 1+ (Neg); Color, Urine Yellow (P-Yellow)
[2020-02-03 16:42] LABS: Bacteria Mod /hpf; Squamous Epithelial Cells Many /hpf (Few)
[2020-02-03 16:43] LABS: Amorphous Light (0-Heavy)
[2020-02-03 16:44] LABS: Granular Casts 25-50 /lpf (0)
[2020-02-03 18:22] LABS: Troponin I 0.063 ng/mL (0.000-0.040)
[2020-02-03 18:23] LABS: Thyroid Stimulating Hormone 16.6 uIU/mL (0.360-4.800)
[2020-02-03] MEDS ORDERED: Kristalose20 GM PO (19:13)
[2020-02-03] MEDS ORDERED: PROM25 PO (19:13)
[2020-02-03] MEDS ORDERED: BENZ100A PO (19:28)
== END 2020-02-03 19:32 | disposition home or self-care (01) ==
LOC: ER 13:33
PROVIDERS: Emergency Medicine; Physician Assistant
DX: I12.9 Hypertensive chronic kidney disease with stage 1 through stage 4 chronic kidney disease, or unspecified chronic kidney disease (principal); N18.3 Chronic kidney disease, stage 3 (moderate); R41.82 Altered mental status, unspecified; R79.89 Other specified abnormal findings of blood chemistry; R59.9 Enlarged lymph nodes, unspecified; E11.22 Type 2 diabetes mellitus with diabetic chronic kidney disease; Z88.7 Allergy status to serum and vaccine; Z79.899 Other long term (current) drug therapy; Z79.82 Long term (current) use of aspirin
CPT/HCPCS: 36415; 71046; 76705; 80053; 81001; 82140; 83690; 84443; 84484; 85025; 87086; 93005; 93010; 96374; 99284-25; J2405; J7030

== ENCOUNTER 2020-02-13 12:09 | Emergency (ER) | payer OTHER ==
[~2020-02-13] VITALS: Ht 154.9 cm; Wt 96.6 kg
[~2020-02-13 12:09] MED LIST changes: +BENZ100A PO; +Kristalose20 GM PO; +PROM25 PO
[2020-02-13 13:01] LABS: BASOPHILS ABSOLUTE AUTO 0.08 K/mm3 (0.00-0.23); BASOPHILS PERCENT AUTO 1 % (0-2); EOSINOPHILS ABSOLUTE AUTO 0.12 K/mm3 (0.00-0.68); EOSINOPHILS PERCENT AUTO 2 % (0-6); Hematocrit 37.1 % (33.0-51.0); IMMATURE GRAN ABSOLUTE AUTO 0.03 K/mm3 (0.00-0.10); IMMATURE GRAN PERCENT AUTO 0 % (0-1); LYMPHOCYTES ABSOLUTE AUTO 1.26 K/mm3 (0.84-5.20); LYMPHOCYTES PERCENT AUTO 18 % (21-46); MONOCYTES ABSOLUTE AUTO 0.58 K/mm3 (0.16-1.47); MONOCYTES PERCENT AUTO 8 % (4-13); Mean Corpuscular HGB 32.2 pg (26.0-34.0); Mean Corpuscular HGB Conc 32.3 g/dL (31.5-36.5); Mean Corpuscular Volume 100 fL (80-100); Mean Platelet Volume 10.9 fL (9.1-12.4); NEUTROPHILS ABSOLUTE AUTO 5.07 K/mm3 (1.96-9.15); NEUTROPHILS PERCENT AUTO 71 % (41-73); Platelet Count 86 K/mm3 (150-400); RDW Coefficient Variation 16.9 % (11.7-14.2); RDW Standard Deviation 61.6 fL (35.1-46.3); Red Blood Cell Count 3.73 M/mm3 (3.80-5.20); White Blood Cell Count 7.14 K/mm3 (4.00-11.30)
[2020-02-13 13:17] LABS: Albumin, Blood 1.9 g/dL (3.4-5.0); Albumin/Globulin Ratio 0.3 (0.8-1.8); Bilirubin, Total 2.8 mg/dL (0.1-1.0); Bun/Creatinine Ratio 15.5 (12.0-20.0); Calcium, Blood 8.3 mg/dL (8.5-10.1); Creatinine, Blood 2.45 mg/dL (0.40-1.00); Globulin, Blood 5.7 g/dL (2.2-4.0); International Normalized Ratio 1.44; Potassium, Blood 4.9 mmol/L (3.5-5.5); Prothrombin Time Results 15.1 Sec (9.7-11.5); Total Protein, Blood 7.6 g/dL (6.4-8.2)
[2020-02-13] MEDS ORDERED: LACT10SY PO (14:01)
[2020-02-13] MEDS ORDERED: ISOSORBIDE MONO30 MG PO (14:02)
[2020-02-13] MEDS ORDERED: ATOR40TA PO (14:02)
[2020-02-13] MEDS ORDERED: METO5 PO (14:03)
[2020-02-13] MEDS ORDERED: Bumetanide2 MG PO (14:03)
[2020-02-13] MEDS ORDERED: METOPROLOL SUCC25 MG PO (14:03)
[2020-03-08] MEDS ORDERED: CONSTULOSE10 GM/151 PO (11:46)
[2020-03-08] MEDS ORDERED: K-Dur10 MEQ PO (11:46)
[2020-03-08] MEDS ORDERED: TORSE20 PO (11:47)
[2020-03-08] MEDS ORDERED: ATOR40TA PO (11:47)
[2020-03-08] MEDS ORDERED: METO5 PO (11:48)
== END 2020-02-13 14:45 | disposition home or self-care (01) ==
LOC: ER 12:09
PROVIDERS: Physician Assistant
DX: R79.89 Other specified abnormal findings of blood chemistry (principal); R53.1 Weakness; R41.0 Disorientation, unspecified; Z88.7 Allergy status to serum and vaccine; Z79.899 Other long term (current) drug therapy; I12.9 Hypertensive chronic kidney disease with stage 1 through stage 4 chronic kidney disease, or unspecified chronic kidney disease; N18.9 Chronic kidney disease, unspecified; K74.60 Unspecified cirrhosis of liver; E11.22 Type 2 diabetes mellitus with diabetic chronic kidney disease; Z79.82 Long term (current) use of aspirin
CPT/HCPCS: 36415; 80053; 82140; 85025; 85610; 99283

== ENCOUNTER 2020-02-20 17:43 | Inpatient (IN) | payer OTHER ==
[~2020-02-20] VITALS: Ht 154.9 cm; Wt 109.1 kg
[~2020-02-20 17:43] MED LIST changes: +ATOR40TA PO; +Bumetanide2 MG PO; +ISOSORBIDE MONO30 MG PO; +METOPROLOL SUCC25 MG PO
[2020-02-20] MEDS ORDERED: CALC.25 PO (18:14)
[2020-02-20] MEDS ORDERED: POLYETHYLENE PO (18:15)
[2020-02-20] MEDS ORDERED: MAG DELAY64 MG PO (18:17)
[2020-02-20] MEDS ORDERED: PANT40 PO (18:18)
[2020-02-20] MEDS ORDERED: ALUMINUM H320 MG/5 M PO (18:18)
[2020-02-20 18:41] LABS: EOSINOPHILS ABSOLUTE AUTO 0.04 K/mm3 (0.00-0.68); EOSINOPHILS PERCENT AUTO 1 % (0-6)
[2020-02-20 18:51] LABS: BASOPHILS ABSOLUTE AUTO 0.04 K/mm3 (0.00-0.23); BASOPHILS PERCENT AUTO 1 % (0-2); Hematocrit 40.5 % (33.0-51.0); Hemoglobin 13.3 g/dL (11.5-16.0); IMMATURE GRAN ABSOLUTE AUTO 0.05 K/mm3 (0.00-0.10); IMMATURE GRAN PERCENT AUTO 1 % (0-1); LYMPHOCYTES ABSOLUTE AUTO 1.38 K/mm3 (0.84-5.20); LYMPHOCYTES PERCENT AUTO 17 % (21-46); MONOCYTES ABSOLUTE AUTO 1.23 K/mm3 (0.16-1.47); MONOCYTES PERCENT AUTO 15 % (4-13); Mean Corpuscular HGB 32.5 pg (26.0-34.0); Mean Corpuscular HGB Conc 32.8 g/dL (31.5-36.5); Mean Corpuscular Volume 99 fL (80-100); Mean Platelet Volume 11.3 fL (9.1-12.4); NEUTROPHILS ABSOLUTE AUTO 5.51 K/mm3 (1.96-9.15); NEUTROPHILS PERCENT AUTO 67 % (41-73); Platelet Count 71 K/mm3 (150-400); RDW Coefficient Variation 17.7 % (11.7-14.2); RDW Standard Deviation 62.8 fL (35.1-46.3); Red Blood Cell Count 4.09 M/mm3 (3.80-5.20); White Blood Cell Count 8.25 K/mm3 (4.00-11.30)
[2020-02-20 19:13] LABS: Albumin, Blood 1.9 g/dL (3.4-5.0); Albumin/Globulin Ratio 0.3 (0.8-1.8); Bilirubin, Total 3.4 mg/dL (0.1-1.0); Bun/Creatinine Ratio 17.4 (12.0-20.0); Calcium, Blood 8.8 mg/dL (8.5-10.1); Creatinine, Blood 2.53 mg/dL (0.40-1.00); Globulin, Blood 5.9 g/dL (2.2-4.0); Magnesium, Blood 2.7 mg/dL (1.6-2.4); Phosphorus, Blood 4.8 mg/dL (2.5-4.9); Potassium, Blood 4.6 mmol/L (3.5-5.5); Total Protein, Blood 7.8 g/dL (6.4-8.2)
[2020-02-20 20:35] LABS: International Normalized Ratio 1.5; Prothrombin Time Results 15.7 Sec (9.7-11.5)
--- NOTE | 2020-02-21 01:42 | NUR ---
0130 SOME NAUSEA. TX PER EMAR. PT ON BED OMER ATTEMPTING TO VOID. WILL BLADDER SCAN AFTER BED OMER.
--- NOTE | 2020-02-21 01:58 | NUR ---
0158 PT UNABLE TO VOID. DR BALBUENA CALLED AND INFORMED OF BLADDER SCAN OF [address] BALBUENA ORDERED TO RECHECK IN MORNING.
--- NOTE | 2020-02-21 04:27 | NUR ---
SUMMARY PT ARRIVED TO FLOOR IN NO DISTRESS. PT HAS BEEN NPO SINCE ARRIVING TO FLOOR. PT REMAINS CONFUSED AND WEAK. PT HAS A PERSISTANT COUGH W/ NO PRODUCTION. PT HAS NOT VOIDED AND HAS BEEN BLADDER SCAN. LAST SCAN SHOWED BLADDER VOLUME OF [address] BALBUENA CALLED AND HE ORDERED TO RECHECK THIS AM. PT HAD A EPISODE OF NAUSEA AND TX PER EMAR. PT CURRENTLY RESTING AND IN NO DISTRESS. CALL LIGHT IN REACH AND BED ALARM ON.
[2020-02-21 05:34] LABS: BASOPHILS ABSOLUTE AUTO 0.04 K/mm3 (0.00-0.23); BASOPHILS PERCENT AUTO 1 % (0-2); EOSINOPHILS ABSOLUTE AUTO 0.04 K/mm3 (0.00-0.68); EOSINOPHILS PERCENT AUTO 1 % (0-6); Hemoglobin 12.8 g/dL (11.5-16.0); IMMATURE GRAN ABSOLUTE AUTO 0.04 K/mm3 (0.00-0.10); IMMATURE GRAN PERCENT AUTO 1 % (0-1); LYMPHOCYTES ABSOLUTE AUTO 1.37 K/mm3 (0.84-5.20); LYMPHOCYTES PERCENT AUTO 20 % (21-46); MONOCYTES ABSOLUTE AUTO 0.88 K/mm3 (0.16-1.47); MONOCYTES PERCENT AUTO 13 % (4-13); Mean Corpuscular HGB 32.1 pg (26.0-34.0); Mean Corpuscular HGB Conc 32.8 g/dL (31.5-36.5); Mean Corpuscular Volume 98 fL (80-100); Mean Platelet Volume 11.1 fL (9.1-12.4); NEUTROPHILS ABSOLUTE AUTO 4.66 K/mm3 (1.96-9.15); NEUTROPHILS PERCENT AUTO 66 % (41-73); Platelet Count 72 K/mm3 (150-400); RDW Coefficient Variation 17.7 % (11.7-14.2); RDW Standard Deviation 62.7 fL (35.1-46.3); Red Blood Cell Count 3.99 M/mm3 (3.80-5.20); White Blood Cell Count 7.03 K/mm3 (4.00-11.30)
[2020-02-21 06:06] LABS: Magnesium, Blood 2.6 mg/dL (1.6-2.4)
[2020-02-21 06:16] LABS: Albumin, Blood 1.8 g/dL (3.4-5.0); Albumin/Globulin Ratio 0.3 (0.8-1.8); Bilirubin, Total 3.5 mg/dL (0.1-1.0); Bun/Creatinine Ratio 17.7 (12.0-20.0); Calcium, Blood 8.3 mg/dL (8.5-10.1); Creatinine, Blood 2.54 mg/dL (0.40-1.00); Globulin, Blood 5.6 g/dL (2.2-4.0); Phosphorus, Blood 4.3 mg/dL (2.5-4.9); Potassium, Blood 5.1 mmol/L (3.5-5.5); Thyroid Stimulating Hormone 10.7 uIU/mL (0.360-4.800); Total Protein, Blood 7.4 g/dL (6.4-8.2)
--- NOTE | 2020-02-21 15:45 | NUR ---
SHIFT SUMMARY UPON THE START OF THE SHIFT THE PT WAS VERY FATIGUED AND SLEEPING SOUNDLY. SHE WOULD WAKE UP TO REPOSITIONING AND WAS ORIENTED ONLY TO HERSELF. AROUND LUNCH TIME SHE BECAME MORE ALERT WHEN HER ARRIVED AND SHE WAS ABLE TO TAKE IN SOME FLUIDS AND MEDS. PER THE DR HE FELT SHE WAS SAFE TO HAVE ORAL INTAKE AND HER LACTULOSE WAS A PRIORITY SINCE HER AMMONIA LEVEL IS ELEVATED. SHE HAS YET TO HAVE A BM TODAY. THE DR HAS BEEN UPDATED THIS AFTERNOON ON HER PROGRESS. OF NOW DR BABLUENA IS STILL WAITING TO SEE IF SHE WILL NEED A DIALYSIS PORT PLACED. THE PT IS RESTING IN BED WITH HER BED ALARM ON FOR SAFETY.
--- NOTE | 2020-02-21 18:45 | NUR ---
ASSUMED CARE RECEIVED REPORT FROM MICKEY HOGUE. ASSUMED CARE OF PT. RESTING COMFORTABLY AT THIS TIME, NO S/S ACUTE DISTRESS NOTED. RESPS EVEN AND UNLABORED. DENIES NEEDS AT THIS TIME. CALL LIGHT, POSSESSIONS IN REACH. BED IN LOW POSITION WITH ALARMS ON. WCTM.
--- NOTE | 2020-02-22 05:02 | NUR ---
SHIFT SUMMARY PT HAS HAD AN UNEVENTFUL NIGHT, SLEPT T/O. REPOSITIONED AND KEPT COMFORTABLE T/O NIGHT. NO ACUTE CHANGES IN CONDITION NOTED. VS STABLE. PT REMAINS A&O TO SELF AND LOCATION, UNABLE TO STATE YEAR OR WHO THE PRESIDENT IS. TOOK ORAL MEDS WITHOUT DIFFICULTY. DENIES NEEDS AT THIS TIME. CALL LIGHT, POSSESSIONS IN REACH, BED IN LOWEST POSITION WITH ALARMS ON. WILL CONTINUE TO MONITOR UNTIL DAY RN ASSUMES CARE.
[2020-02-22 05:34] LABS: BASOPHILS ABSOLUTE AUTO 0.05 K/mm3 (0.00-0.23); BASOPHILS PERCENT AUTO 1 % (0-2); EOSINOPHILS ABSOLUTE AUTO 0.08 K/mm3 (0.00-0.68); EOSINOPHILS PERCENT AUTO 1 % (0-6); Hematocrit 35.7 % (33.0-51.0); Hemoglobin 12.1 g/dL (11.5-16.0); IMMATURE GRAN ABSOLUTE AUTO 0.05 K/mm3 (0.00-0.10); IMMATURE GRAN PERCENT AUTO 1 % (0-1); LYMPHOCYTES ABSOLUTE AUTO 1.26 K/mm3 (0.84-5.20); LYMPHOCYTES PERCENT AUTO 15 % (21-46); MONOCYTES ABSOLUTE AUTO 1.08 K/mm3 (0.16-1.47); MONOCYTES PERCENT AUTO 13 % (4-13); Mean Corpuscular HGB 32.6 pg (26.0-34.0); Mean Corpuscular HGB Conc 33.9 g/dL (31.5-36.5); Mean Corpuscular Volume 96 fL (80-100); Mean Platelet Volume 11.3 fL (9.1-12.4); NEUTROPHILS ABSOLUTE AUTO 5.68 K/mm3 (1.96-9.15); NEUTROPHILS PERCENT AUTO 69 % (41-73); NRBC ABSOLUTE 0.02 K/mm3 (0.00-0.02); NRBC Auto 0.2 /100 WBC (0.0-0.2); Platelet Count 69 K/mm3 (150-400); RDW Standard Deviation 61.1 fL (35.1-46.3); Red Blood Cell Count 3.71 M/mm3 (3.80-5.20)
[2020-02-22 05:44] LABS: Albumin, Blood 1.6 g/dL (3.4-5.0); Albumin/Globulin Ratio 0.3 (0.8-1.8); Bilirubin, Total 3.7 mg/dL (0.1-1.0); Bun/Creatinine Ratio 18.9 (12.0-20.0); Calcium, Blood 8.3 mg/dL (8.5-10.1); Creatinine, Blood 2.81 mg/dL (0.40-1.00); Free Thyroxine 1.02 ng/dL (0.70-1.60); Globulin, Blood 5.5 g/dL (2.2-4.0); Magnesium, Blood 2.8 mg/dL (1.6-2.4); Phosphorus, Blood 5.1 mg/dL (2.5-4.9); Potassium, Blood 5.2 mmol/L (3.5-5.5); Total Protein, Blood 7.1 g/dL (6.4-8.2)
--- NOTE | 2020-02-22 18:47 | NUR ---
SHIFT SUMMARY PT AWAKE AND ALERT BUT SLOW TO RESPOND VERBALLY. GOTTEN UP IN CHAIR BY P.T. PRIOR TO LUNCH. WANTED TO STAY UP IN CHAIR TIL AFTER SUPPER. STATED SHE DIDN'T FEEL WELL AND DIDN'T EAT SUPPER. LACTULOSE GIVEN EVERY 4 HOURS. NO BM YET. REPORTS SHE HADN'T HAD A BM IN SEVERAL DAYS PRIOR TO ADMISSION. MORE DROWSY AND CONFUSED AND HAVING TROUBLE FOLLOWING DIRECTIONS THIS EVENING. 1 PERSON ASSIST WITH TRANSFERS.
--- NOTE | 2020-02-23 04:10 | NUR ---
UNABLE TO GIVE 0400 ENULOSE SAFELY PATIENT TO SOMNOLENT TO WAKE UP AND SWALLOW. SHE IS CURRENTLY ALREADY ON SWALLOW PRECAUTIONS.
--- NOTE | 2020-02-23 05:09 | NUR ---
PATIENT VERY SOMNOLENT THROUGHOUT THE NIGHT. PER EARLIER FUSION OPERATOR RN, UNABLE TO GIVE LACTULOSE OR ANY HS MEDS SAFELY. AFTER APPROX 40 MINUTES AND WITH ASSIST OF 2 RIVET DRIVER'S, WE WERE ABLE TO GET 0400 LACTULOSE ON BOARD BEFORE ODALYS FELL BACK TO SLEEP. PATIENT DOES NOT APPEAR TO BE IN ANY DISCOMFORT. CHECKING FREQUENTLY. RINCON DRAINING LIGHT TEA COLORED URINE
[2020-02-23 05:53] LABS: Hematocrit 36.7 % (33.0-51.0); Hemoglobin 12.1 g/dL (11.5-16.0)
[2020-02-23 06:27] LABS: Albumin, Blood 1.8 g/dL (3.4-5.0); Anion Gap 11 mmol/L (6-16); Blood Urea Nitrogen 55 mg/dL (8-24); Bun/Creatinine Ratio 19.9 (12.0-20.0); CO2, Blood 21 mmol/L (21-32); Calcium, Blood 8.6 mg/dL (8.5-10.1); Chloride, Blood 99 mmol/L (98-108); Creatinine, Blood 2.77 mg/dL (0.40-1.00); Glomerular Filtration Rate 18 (60-); Glucose, Blood 124 mg/dL (70-99); Magnesium, Blood 2.9 mg/dL (1.6-2.4); Phosphorus, Blood 4.7 mg/dL (2.5-4.9); Potassium, Blood 4.4 mmol/L (3.5-5.5); Sodium, Blood 131 mmol/L (136-145)
--- NOTE | 2020-02-23 10:00 | NUR ---
PT NONRESPONSIVE THIS MORNING. UNABLE TO TAKE ORAL MEDS. STERNAL RUB DONE WITH NO RESPONSE. SNORING LOUDLY WHEN LAYING FLAT IN BED. SPOKE WITH MD ABOUT CHANGE IN MENTAIION AND CONTINUATION OF NO BM. FLEET ENEMA ORDERED AND GIVEN. HELD A SMALL AMOUNT OF THE ENEMA. WAS STILL NOT RESPONSIVE TO ANY STIMULI AT THE TIME.
--- NOTE | 2020-02-23 12:05 | NUR ---
Initial palliative care assessment: Yoly is a 63 year old with a history of CKD stage 4, HTN, nonalcoholic steatohepatitis, DM, CML and NICHOLE. She was admitted to [facility] on 02/20/20 with worsening kidney function weakness and confusion. Yoly doesn't wake to verbal stimuli today. She lays quietly in the bed occasionally turning her head from side to side. Wilberto, her , is at the bedside. He reports that he has observed a decline in her health and mobility the last month, especially the last 2 weeks. He reports "She's been going downhill." Dr. Still had visited with him just prior to my visit and the plan at this time is to consult GI for further evaluation. Pt is unable to awaken enough to take any PO meds safely. She has not had a BM in the past several days. Wilberto asked Dr. Still questions re: the possibility of a liver transplant and if that was even an option at this point. The GI consult was ordered after their conversation. Wilberto reports that Yoly has been sleeping more and has been much less active recently than her baseline. She has been requiring more assistance with ADLs recently and Wilberto states that in her current state he would not be able to take Yoly home and care for her. He reports they have three children, two live locally and one in [place]. He states they all are busy with their own lives. Discussed Wilberto's hope for Yoly. He hopes that an answer can be found as to her recent decline. He is hopeful that she could improve, start feeling better and go to rehab to get stronger and be able to come home. He confirmed his wishes that she remain a full code at this time. He is hoping for a recovery, however he stated that if she continued to decline and have a poor quality of life than he would consider focusing on comfort. Most of visit was therapeutic in nature. Will await GI consult and follow up with Yoly and Wilberto tomorrow. Once GI consult is obtained will have further discussions re: goals of care. Dr. Perez is also seeing pt for her CKD. Wilberto requests that he be updated on any changes in condition and informed of any updates that the physicians may have. Nursing updated. PC will continue to follow for symptom managment support and advanced care planning.
--- NOTE | 2020-02-23 13:00 | NUR ---
DR. ARRIAGA IN ROOM WHILE AT BEDSIDE. PT CONTINUES TO BE NONRESPONSIVE. DULCOLAX SUPPOSITORY GIVEN. EYES HAVE OPENED ON AND OFF BUT ISN'T FOCUSING ON ANYTHING. PALLIATIVE CARE IN TO SEE PT AND WELL. SPOKE WITH DR. GABRIEL ABOUT CONSULT IN THE HALLWAY.
[2020-02-23 16:38] LABS: Source, Urine Clean Catch
[2020-02-23 16:52] LABS: Bilirubin, Urine Neg (Neg); Blood, Urine 5+ (Neg); Glucose Qualitative, Urine Neg (Neg); Ketones, Urine Neg (Neg); Leukocyte Esterase, Urine 1+ (Neg); Nitrite, Urine Pos (Neg); Protein, Urine 2+ (Neg); Specific Gravity, Urine 1.015 (1.003-1.022); Urobilinogen, Urine NORM (Normal)
[2020-02-23 17:00] LABS: Appearance, Urine Clear (Clear); Color, Urine Yellow (P-Yellow)
[2020-02-23 17:01] LABS: Bacteria Many /hpf; Squamous Epithelial Cells Few /hpf (Few)
--- NOTE | 2020-02-23 19:26 | NUR ---
SHIFT SUMMARY LACTULOSE ENEMA GIVEN APPROX 1700. NO STOOL CAME FROM ENEMA AND PT UNABLE TO HOLD IT. MOST OF ENEMA CAME BACK OUT. AFTER TUBING REMOVED A SMALL AMOUNT OF WHAT APPEARED TO BE BLOOD AT END OF TUBING. PT DID ROUSES ENOUGHT TO GRAB THE RAIL AND THEN VERBALLY RESPOND TO HER NAME BUT WAS UNABLE TO ANSWER QUESTIONS. WOULD FOCUS ON STAFF FACE FOR A SHORT TIME AND THEN LOOK BLANKLY. HAS RESPONDED TO HER NAME SEVERAL TIMES SINCE ENEMA BUT NOTHING ELSE VERBALLY. DR. GABRIEL IN TO PT APPROX 1445.
--- NOTE | 2020-02-24 06:24 | NUR ---
SHIFT SUMMARY- PT. AWAKE AND ALERT THIS SHIFT. RECEIVED SCHEDULED DOSE OF LACTULOSE ENEMA LAST NIGHT, HAD 2 LARGE LIQUID STOOLS. PT. RESPONDING APPROPRIATELY TO ORIENTATION QUESTIONS. DENIED ANY PAIN, C/O FEELING TIRED AND WEAK. REPOSITIONED PRN FOR COMFORT, ATTENDS IN PLACE. STARTED IV ABX LAST NIGHT, TOLERATED WELL. CALL LIGHT WITHIN REACH AND SIDE RAILS UP X3. WILL CONT TO MONITOR.
[2020-02-24 08:24] LABS: Albumin, Blood 1.7 g/dL (3.4-5.0); Anion Gap 12 mmol/L (6-16); Blood Urea Nitrogen 67 mg/dL (8-24); Bun/Creatinine Ratio 26.5 (12.0-20.0); CO2, Blood 21 mmol/L (21-32); Calcium, Blood 8.3 mg/dL (8.5-10.1); Chloride, Blood 100 mmol/L (98-108); Creatinine, Blood 2.53 mg/dL (0.40-1.00); Glomerular Filtration Rate 20 (60-); Glucose, Blood 108 mg/dL (70-99); Magnesium, Blood 2.8 mg/dL (1.6-2.4); Phosphorus, Blood 6.7 mg/dL (2.5-4.9); Sodium, Blood 133 mmol/L (136-145)
--- NOTE | 2020-02-24 14:15 | NUR ---
Stopped by to check in on Yoly and her this afternoon. Yoly is awake, but states that she is very tired. Wilberto is not currently in her room and she states that she doesn't think he has come in to visit with her today. Will allow Yoly to rest at this time and will check back in again later this afternoon.
--- NOTE | 2020-02-24 18:18 | NUR ---
PATIENT IS ALERT AND ORIENTED TO SELF AND HER SURROUNDINGS. SHE IS TALKING WITH STAFF, EATING AND DRINKING. SHE HAS HAD TWO LARGE BOWEL MOVEMENTS TODAY. SHE STATES SHE FEELS WEAK AND TIRED. WE ASSIST WITH REPOSITIONING. ATTENDS IN PLACE, SHE IS INCONTINENT. NO COMPLAINTS OF PAIN. SHE HAS WATCHED TV AND SLEPT THROUGHTOUT THE DAY. WILL CONTINUE TO MONITOR
--- NOTE | 2020-02-25 04:22 | NUR ---
SUMMARY NO NEW ISSUES NOTED. PT REMAINS SLEEPY BUT AROUSABLE. PT REMAINS CONFUSED AND WEAK. PT HAS SLEPT T/O SHIFT. PT HAS BEEN CHANGED AND REPOSITIONED NEEDED. RINCON IS DRAINING FREELY. PT CURRENTLY SLEEPING AND BREATHING EASY. CALL LIGHT IN REACH AND BED ALARM ON.
[2020-02-25 04:57] LABS: Hematocrit 38.6 % (33.0-51.0)
[2020-02-25 05:29] LABS: Albumin, Blood 1.7 g/dL (3.4-5.0); Anion Gap 15 mmol/L (6-16); Blood Urea Nitrogen 73 mg/dL (8-24); Bun/Creatinine Ratio 26.4 (12.0-20.0); CO2, Blood 18 mmol/L (21-32); Calcium, Blood 7.4 mg/dL (8.5-10.1); Chloride, Blood 96 mmol/L (98-108); Creatinine, Blood 2.77 mg/dL (0.40-1.00); Glomerular Filtration Rate 18 (60-); Glucose, Blood 102 mg/dL (70-99); Magnesium, Blood 2.9 mg/dL (1.6-2.4); Phosphorus, Blood 6.2 mg/dL (2.5-4.9); Potassium, Blood 4.2 mmol/L (3.5-5.5); Sodium, Blood 129 mmol/L (136-145)
--- NOTE | 2020-02-25 19:41 | NUR ---
SHIFT SUMMARY- PT HAS SHOWED SOME IMPROVEMENT T/O THE SHIFT ACTUALLY BEING ABLE TO ASSIST STAFF WITH HER REPOSITIONING. PT HAS HAD FREQUENT BM'S TODAY THAT ARE LOOSE, PT IS ON LACTULOSE AND THIS IS EXPECTED. PT RECIEVED IV ALBUMIN AND IVF THIS MORNING FOR 1 BAG ANOTHER DOSE OF ALBUMIN ORDERED FOR THIS EVENING. PT HAS HAD NO ACUTE CHANGES, STILL ON ROOM AIR VITALS WNL. PLAN IS FOR POSSIBLE DC TO SNF TOMORROW OR THURSDAY DEPENDING ON PT IMPROVEMENT.
[2020-02-26 05:50] LABS: BASOPHILS ABSOLUTE AUTO 0.02 K/mm3 (0.00-0.23); BASOPHILS PERCENT AUTO 0 % (0-2); EOSINOPHILS ABSOLUTE AUTO 0.08 K/mm3 (0.00-0.68); EOSINOPHILS PERCENT AUTO 1 % (0-6); Hematocrit 30.2 % (33.0-51.0); IMMATURE GRAN ABSOLUTE AUTO 0.04 K/mm3 (0.00-0.10); IMMATURE GRAN PERCENT AUTO 1 % (0-1); LYMPHOCYTES ABSOLUTE AUTO 0.98 K/mm3 (0.84-5.20); LYMPHOCYTES PERCENT AUTO 12 % (21-46); MONOCYTES ABSOLUTE AUTO 1.03 K/mm3 (0.16-1.47); MONOCYTES PERCENT AUTO 12 % (4-13); Mean Corpuscular HGB 32.7 pg (26.0-34.0); Mean Corpuscular HGB Conc 33.1 g/dL (31.5-36.5); Mean Corpuscular Volume 99 fL (80-100); Mean Platelet Volume 10.4 fL (9.1-12.4); NEUTROPHILS ABSOLUTE AUTO 6.26 K/mm3 (1.96-9.15); NEUTROPHILS PERCENT AUTO 74 % (41-73); Platelet Count 52 K/mm3 (150-400); RDW Coefficient Variation 18.4 % (11.7-14.2); RDW Standard Deviation 64.5 fL (35.1-46.3); Red Blood Cell Count 3.06 M/mm3 (3.80-5.20); White Blood Cell Count 8.41 K/mm3 (4.00-11.30)
[2020-02-26 06:07] LABS: Alanine Aminotransfer (ALT/SGP 114 U/L (12-78); Albumin, Blood 2.3 g/dL (3.4-5.0); Albumin/Globulin Ratio 0.5 (0.8-1.8); Alk Phos 110 U/L (50-136); Anion Gap 12 mmol/L (6-16); Aspartate Aminotrans (AST/SGOT 548 U/L (12-37); Bilirubin, Total 2.9 mg/dL (0.1-1.0); Blood Urea Nitrogen 88 mg/dL (8-24); Bun/Creatinine Ratio 34.1 (12.0-20.0); CO2, Blood 20 mmol/L (21-32); Calcium, Blood 6.9 mg/dL (8.5-10.1); Chloride, Blood 95 mmol/L (98-108); Creatinine, Blood 2.58 mg/dL (0.40-1.00); Globulin, Blood 4.5 g/dL (2.2-4.0); Glomerular Filtration Rate 20 (60-); Glucose, Blood 87 mg/dL (70-99); Magnesium, Blood 2.8 mg/dL (1.6-2.4); Phosphorus, Blood 5.8 mg/dL (2.5-4.9); Potassium, Blood 4.2 mmol/L (3.5-5.5); Sodium, Blood 127 mmol/L (136-145); Total Protein, Blood 6.8 g/dL (6.4-8.2)
--- NOTE | 2020-02-26 07:50 | NUR ---
ASSUMED CARE OF PT- BEDSIDE REPORT COMPLETED WITH NIGHT RN DAMIR. PT ALERT AND ORIENTED TO SELF, PLACE, SITUATION AND PERSON. PT APPEARS TO HAVE IMPROVED FURTHER T/O THE NIGHT HOWEVER SHE REMAINS WEAK. SHE ASKED IF THE DOCTOR STILL PLANS TO DISCHARGE HER TODAY, RNASKED WHAT SHE THOUGHT SHE WAS READY FOR THE PT STATED SHE FEELS ALOT BETTER, SHE FEELS THAT STAYING ONE MORE DAY AND WORKING WITH PHYSICAL THERAPY HERE WOULD MAKE HER READY TO DISCHARGE TO A SNF. PT MORE CAPABLE OF CARRYING ON A CONVERSATION THIS MORNING AND MORE QUICK TO SMILE. PT STILL EXTREMELY WEAK BUT A LITTLE MORE ALERT. ASSISTED PT WITH ROLL AND CHANGE AND REPOSITION DURING ASSESSMENT, NO NEW SKIN ISSUES NOTED, PT MAY BENIFIT FROM SOME NYSTATIN POWDER TO THE SKIN FOLDS OF THE PANUS, AND BREAST AREA, SKIN THERE VERY DISCOLORED AND FLAKEY. WILL SPEAK TO ON MORNING ROUNDS.
--- NOTE | 2020-02-26 19:27 | NUR ---
SHIFT SUMMARY- PT HAS HAD NO ACUTE CHANGE T/O THE SHIFT. PT FED HERSELF FOR MOST OF LUNCH AND DINNER. PASSED ON IN BEDSIDE REPORT TO NIGHT MICKEY REICH.
--- NOTE | 2020-02-27 04:44 | NUR ---
SUMMARY 02/26/2020 PT HAD NO NEW ISSUES THIS SHIFT. PT IS COMPLAINING OF BEING WEAK AND DOESN'T UNDERSTAND WHY. PT HAS SLEPT FOR MOST OF SHIFT. PT HAS BEEN DRINKING FLUIDS WELL. PT HAS BEEN CHANGED AND REPOSITIONED NEEDED. RINCON DRAINING. CALL LIGHT IN REACH.
--- NOTE | 2020-02-27 04:47 | NUR ---
SUMMARY PT HAD NO ISSUES. PT IS MORE ALERT AND ORIENTATED THIS SHIFT. PT IS SMILING AND INTERACTING WELL. PT HAS BEEN EATING JELLO AND HAVING SOME PEPSI. PT HAS BEEN DRINKING WATER WELL. PT HAS BEEN SLEEPING WELL T/O SHIFT. PT CURRENTLY AWAKE AND BREATHING EASY. PT CHANGED AND REPOSITIONED NEEDED. CALL LIGHT IN REACH.
[2020-02-27 05:39] LABS: Hematocrit 29.3 % (33.0-51.0); Hemoglobin 9.6 g/dL (11.5-16.0)
[2020-02-27 06:05] LABS: Magnesium, Blood 2.9 mg/dL (1.6-2.4)
[2020-02-27 06:20] LABS: Albumin, Blood 2.4 g/dL (3.4-5.0); Anion Gap 14 mmol/L (6-16); Blood Urea Nitrogen 102 mg/dL (8-24); Bun/Creatinine Ratio 33.2 (12.0-20.0); CO2, Blood 18 mmol/L (21-32); Chloride, Blood 92 mmol/L (98-108); Creatinine, Blood 3.07 mg/dL (0.40-1.00); Glomerular Filtration Rate 16 (60-); Glucose, Blood 130 mg/dL (70-99); Phosphorus, Blood 5.2 mg/dL (2.5-4.9); Potassium, Blood 4.2 mmol/L (3.5-5.5); Sodium, Blood 124 mmol/L (136-145)
--- NOTE | 2020-02-27 16:47 | NUR ---
Initial spiritual care note: Yoly was alone in room and welcoming of prayer/conversation. She appears a bit mentally muddled, with a gentle demeanor. She had some questions about rehab that I was able to answer. She tells me she is worried, but is hopefull for recovery. I provided prayer and encouragement to good effect. She declined needs. I will remain available.
--- NOTE | 2020-02-27 18:09 | NUR ---
SHIFT SUMMARY PT REPOSITIONED IN BED T/O THE DAY. 2P MAX ASSIST. PT RECIEVED BED BATH TODAY. PT HAD SOME HYPOTENTION THIS AM, IMPROVED THIS AFTERNOON TO 106/51. OTHER VITALS STABLE. PT MAY POSSIBLY DC TO SNF TOMORROW PENDING KIDNEY FUNCTION AND BP. CATHETER PATENT & DRAINING. LITTLE OUTPUT TODAY AT 250 CC OF DARK JAY URINE. PT HAS HAD 3 LIQUID BMS TODAY. PT ENCOURAGED TO INCREASE HER PO FLUID INTAKE. NO OTHER CHANGES IN ASSESSMENT AT THIS TIME. WILL CONTINUE TO MONITOR UNTIL TURNOVER IS COMPLETE.
--- NOTE | 2020-02-28 04:20 | NUR ---
SHIFT SUMMARY: VSS. AFEB. 02 SAT 95-98% ON 2L VIA NC. MED FOR PAIN AND NAUSEA. PT VOMITED X 2 TONIGHT. REPORTS ABD PAIN IN LLQ AND STATES PAIN WRAPS AROUND L FLANK. FENTANYL HELPFUL. STATES PAIN WORSE W/MOVEMENT. ABD SOFT, TENDER, HYPOACTIVE BT. PT REPORTS LBM 02/26. CONT ON CLEAR LIQUIDS. SBA TO BSC. INDEPENDENT IN BED. NO ACUTE CHANGES AT THIS TIME. WILL CONT TO MONITOR.
[2020-02-28 05:55] LABS: BASOPHILS ABSOLUTE AUTO 0.05 K/mm3 (0.00-0.23); BASOPHILS PERCENT AUTO 1 % (0-2); EOSINOPHILS ABSOLUTE AUTO 0.08 K/mm3 (0.00-0.68); EOSINOPHILS PERCENT AUTO 1 % (0-6); Hematocrit 32.9 % (33.0-51.0); Hemoglobin 10.6 g/dL (11.5-16.0); IMMATURE GRAN ABSOLUTE AUTO 0.06 K/mm3 (0.00-0.10); IMMATURE GRAN PERCENT AUTO 1 % (0-1); LYMPHOCYTES ABSOLUTE AUTO 0.64 K/mm3 (0.84-5.20); LYMPHOCYTES PERCENT AUTO 8 % (21-46); MONOCYTES ABSOLUTE AUTO 1.14 K/mm3 (0.16-1.47); MONOCYTES PERCENT AUTO 14 % (4-13); Mean Corpuscular HGB 32.6 pg (26.0-34.0); Mean Corpuscular HGB Conc 32.2 g/dL (31.5-36.5); Mean Corpuscular Volume 101 fL (80-100); Mean Platelet Volume 11.7 fL (9.1-12.4); NEUTROPHILS ABSOLUTE AUTO 5.92 K/mm3 (1.96-9.15); NEUTROPHILS PERCENT AUTO 75 % (41-73); Platelet Count 53 K/mm3 (150-400); RDW Coefficient Variation 18.3 % (11.7-14.2); Red Blood Cell Count 3.25 M/mm3 (3.80-5.20); White Blood Cell Count 7.89 K/mm3 (4.00-11.30)
[2020-02-28 06:21] LABS: Albumin/Globulin Ratio 0.4 (0.8-1.8); Bilirubin, Total 2.7 mg/dL (0.1-1.0); Bun/Creatinine Ratio 35.7 (12.0-20.0); Calcium, Blood 7.6 mg/dL (8.5-10.1); Creatinine, Blood 3.11 mg/dL (0.40-1.00); Globulin, Blood 4.6 g/dL (2.2-4.0); Phosphorus, Blood 6.6 mg/dL (2.5-4.9); Potassium, Blood 4.2 mmol/L (3.5-5.5); Total Protein, Blood 6.6 g/dL (6.4-8.2)
--- NOTE | 2020-02-28 07:08 | NUR ---
SHIFT SUMMARY: VSS. AFEB. AAO TO SELF, LOCATION, BUT NOT TIME. STATES THAT SHE IS GENERALLY FEELING BETTER. LACTULOSE ADMINSITERED ORDERED. HAS CONT LOOSE STOOLS. ABD LARGE, ROUND, TYMPANIC BOWEL TONES, SOFT AND NON-TENDER. DENIES N/V. SLEPT WELL THROUGH MUCH OF THE NIGHT. DENIES PAIN. REMAINED IN BED ALL NIGHT. 2 ASSIST W/ TURNS AND CARES.
--- NOTE | 2020-02-28 10:08 | NUR ---
02/28/20 0830 pt has to stay a day or two more before going to SNF liver and kidney function need to improve first.. lactulose has been decreased because she was stooling all the time mast remains inplace for retention. she is very weak and she needs to be fed .. her diet has been increased to mech soft but she will still need to be assisted with meals. reamins on iv antibiotics for UTI.
[2020-02-28 15:22] LABS: PCO2 Arterial 28.6 mmHg (35-45); PO2 Arterial 90.5 mmHg (80-100); pH Blood Arterial 7.35 (7.35-7.45)
--- NOTE | 2020-02-28 16:53 | NUR ---
02/28/20 1700 very weak and exhausted can only do about 5 arm lifts so she cant fed herself. still to weak to get oob. ABG's checked bi carb low so dr Perez is starting oral BICARB. has to be repositioned frequently and has 3 bm's today .. very loose and watery. still eating poorly, son helped her with lunch. oriented but doesn't remember the time or date.mast draining brown urine.
--- NOTE | 2020-02-29 06:07 | NUR ---
SHIFT SUMMARY PT IS A 64 Y/O FEMALE, ADMITTED FOR ACUTE HEPATIC ENCEPHALOPATHY. SHE IS A&O X 2, AND ON BEDREST. PT DENIED ANY COMPLAINTS OF PAIN, NAUSEA OR SOB. VITAL SIGNS STABLE. RINCON IN PLACE, PATENT AND DRAINING. NO ACUTE CHANGES IN PT CONDITION NOTED DURING THE NIGHT. WILL CONTINUE TO MONITOR AND TREAT PER EMAR UNTIL HAND OFF TO DAY SHIFT RN.
[2020-02-29 06:24] LABS: Hematocrit 33.2 % (33.0-51.0)
[2020-02-29 06:51] LABS: Albumin, Blood 2.1 g/dL (3.4-5.0); Anion Gap 13 mmol/L (6-16); Blood Urea Nitrogen 124 mg/dL (8-24); Bun/Creatinine Ratio 42.2 (12.0-20.0); CO2, Blood 19 mmol/L (21-32); Calcium, Blood 7.4 mg/dL (8.5-10.1); Chloride, Blood 91 mmol/L (98-108); Creatinine, Blood 2.94 mg/dL (0.40-1.00); Glomerular Filtration Rate 17 (60-); Glucose, Blood 129 mg/dL (70-99); Magnesium, Blood 3.1 mg/dL (1.6-2.4); Phosphorus, Blood 7.2 mg/dL (2.5-4.9); Potassium, Blood 4.3 mmol/L (3.5-5.5); Sodium, Blood 123 mmol/L (136-145)
--- NOTE | 2020-02-29 09:30 | NUR ---
02/29/20 0900 PT SLEPT TIL 0900 AWAKEN FOR BREAKFAST AND OT HERE TO HELP HER WITH HER BREAKFAST DO TO WEAKNESS SHE CAN HARDLY RAISE HER ARMS TO FED HERSELF. DR BALBUENA WAS CALL HIS QAM REGARDING DUIRITICS AND OTHER ELECTROLTYE AND HE ORDERED PHOSE LO WITH MEALS. AND BUMEX 2 MG QOD STARTING TODAY.
--- NOTE | 2020-02-29 15:58 | NUR ---
02/29/[address] FELICIANO ABOUT ODALYS'S NAUSEA ZOFRAN INCREASED TO 4-8 MG Q 6 HOURS. SHE Has HAD 3 VERY LARGE BOWEL MOVEMENTS TODAY . BED BATH DONE, NYSTATIN POWDER APPLIED TO FOLDS.
--- NOTE | 2020-02-29 16:01 | NUR ---
02/29/20 1600 SHIFT SUMMARY . TIRED TODAY BUT ALERT WHEN AWAKE. VERY WEAK. VERY NAUSEA SINCE THIS AM MEDS. ZOFRAN GIVEN . HAD THREE LARGE BM'S TODAY. RINCON OUTPUT IS JAY WITH BROWN SEDIMENT ONLY ABOUT 300 CCS . ONE MORE DAY OF IV ANTIBIOTIC . ORAL CARE DONE. GUM DID BLEED SOME WHEN I BRUSHED HER TEETH . NYSTATIN ORDER RECIEVED AND APPLIED TO PT FOLDS AFTER HER BATH. ORIENTED BUT NOT TO TIME.. DIDNT COME SEE HER TODAY BUT SHE SAID HE IS JUST BORED HERE. MORE ZOFRAN TO BE GIVEN FOR NAUSEA BEFORE DINNER.
--- NOTE | 2020-02-29 19:10 | NUR ---
RECEIVED BEDSIDE REPORT FROM JAMARCUS RN. PT IN BED. RESP EVEN ON RA. WILL MONITOR AND PROVIDE CARE T/O SHIFT. CALL LT NI REACH.
--- NOTE | 2020-02-29 23:21 | NUR ---
AFTER REPOSITIONING, PT REQUESTS A JELLO. PT WAS ABLE TO FEED SELF. CALL LT IN REACH.
--- NOTE | 2020-03-01 04:48 | NUR ---
SHIFT SUMMARY: PT AWAKE MOST OF THE NIGHT OFF AND ON, USED CALL LIGHT FREQUENTLY WANTING TO BE REPOSITIONED WITH PILLOWS. VERY DECONDITIONED. ENCOURAGED PT TO TRY AND MOVE SOME WHILE IN BED. PT ABLE TO LIFT ARMS AND HOLD POSITION WHILE PILLOWS WERE PLACED UNDERNEATH HER ARMS. TAKES MEDS WHOLE ONE AT A TIME IN APPLESAUCE. RINCON PATENT DRAINING JAY COLORED URINE. NO COMPLAINTS OF PAIN, NAUSEA OR SOB. NO ACUTE CHANGES. WILL CONTINUE TO MONITOR AND PROVIDE CARE UNTIL SHIFT REPORT.
[2020-03-01 05:54] LABS: Hematocrit 33.2 % (33.0-51.0); Hemoglobin 10.9 g/dL (11.5-16.0)
[2020-03-01 06:18] LABS: Anion Gap 16 mmol/L (6-16); Blood Urea Nitrogen 131 mg/dL (8-24); Bun/Creatinine Ratio 39.8 (12.0-20.0); CO2, Blood 17 mmol/L (21-32); Calcium, Blood 6.7 mg/dL (8.5-10.1); Chloride, Blood 90 mmol/L (98-108); Creatinine, Blood 3.29 mg/dL (0.40-1.00); Glomerular Filtration Rate 15 (60-); Glucose, Blood 126 mg/dL (70-99); Magnesium, Blood 3.2 mg/dL (1.6-2.4); Phosphorus, Blood 7.1 mg/dL (2.5-4.9); Potassium, Blood 4.6 mmol/L (3.5-5.5); Sodium, Blood 123 mmol/L (136-145)
[2020-03-01 12:21] LABS: Creatinine, Blood 3.32 mg/dL (0.40-1.00)
--- NOTE | 2020-03-01 15:03 | NUR ---
THE PATIENT HAS HAD AN UNEVENTFUL DAY. SHE HAS HAD THREE BM'S TODAY, WHICH IS THE GOAL FOR HER DUE TO HER AMMONIA LEVEL. NEEDS MAX ASSIST WITH ADL's AND REPOSITIONING. CONTINUES ON IV ABX WITHOUT S/SX OF ADVERSE REACTIONS NOTED OR REPORTED. PATIENT REPOSITIONED Q2HRS AND PRN TO MINIMIZE FURTHER SKIN BREAKDOWN. WILL CONTINUE TO MONITOR AND PROVICE CARE NEEDED.
[2020-03-02 05:44] LABS: Hematocrit 32.1 % (33.0-51.0); Hemoglobin 10.4 g/dL (11.5-16.0)
--- NOTE | 2020-03-02 05:44 | NUR ---
UROLOGY PHYSICIAN ASSISTANT SUMMARY NO ACUTE CHANGES THIS SHIFT. PT AAOX3 AND PLEASANT. DENIES PAIN, SOB, N/V. PT CALLS FREQUENTLY FOR SMALL THINGS AND REPOSITIONING. PT HAS TO BE ENCOURAGE TO TRY AND ATTEMPT THINGS FOR HERSELF. PT STATES SHE IS UNABLE BUT SHE GENERALLY IS ABLE TO DO THEM HERSELF WITH SOME ENCOURAGEMENT. VSS, WILL CONTINUE TO MONITOR.
[2020-03-02 06:08] LABS: Albumin, Blood 1.8 g/dL (3.4-5.0); Anion Gap 15 mmol/L (6-16); Blood Urea Nitrogen 138 mg/dL (8-24); Bun/Creatinine Ratio 39.7 (12.0-20.0); CO2, Blood 19 mmol/L (21-32); Calcium, Blood 6.2 mg/dL (8.5-10.1); Chloride, Blood 89 mmol/L (98-108); Creatinine, Blood 3.48 mg/dL (0.40-1.00); Glomerular Filtration Rate 14 (60-); Glucose, Blood 118 mg/dL (70-99); Magnesium, Blood 3.2 mg/dL (1.6-2.4); Phosphorus, Blood 6.8 mg/dL (2.5-4.9); Potassium, Blood 4.5 mmol/L (3.5-5.5); Sodium, Blood 123 mmol/L (136-145)
--- NOTE | 2020-03-02 08:49 | NUR ---
Called Dr. Cotton office and checked in with the heart center staff. Wanting to know if patient is able to have a permcath placement. left a detailed message with Angela's voicemail (art teacher for bruna). Awaiting to see if there is any way to get the perm cath placed today.
[2020-03-02 10:15] LABS: BASOPHILS ABSOLUTE AUTO 0.06 K/mm3 (0.00-0.23); BASOPHILS PERCENT AUTO 1 % (0-2); EOSINOPHILS ABSOLUTE AUTO 0.06 K/mm3 (0.00-0.68); EOSINOPHILS PERCENT AUTO 1 % (0-6); Hematocrit 32.5 % (33.0-51.0); Hemoglobin 10.5 g/dL (11.5-16.0); IMMATURE GRAN ABSOLUTE AUTO 0.05 K/mm3 (0.00-0.10); IMMATURE GRAN PERCENT AUTO 1 % (0-1); LYMPHOCYTES ABSOLUTE AUTO 0.73 K/mm3 (0.84-5.20); LYMPHOCYTES PERCENT AUTO 9 % (21-46); MONOCYTES ABSOLUTE AUTO 1.14 K/mm3 (0.16-1.47); MONOCYTES PERCENT AUTO 14 % (4-13); Mean Corpuscular HGB 32.6 pg (26.0-34.0); Mean Corpuscular HGB Conc 32.3 g/dL (31.5-36.5); Mean Corpuscular Volume 101 fL (80-100); NEUTROPHILS ABSOLUTE AUTO 6.18 K/mm3 (1.96-9.15); NEUTROPHILS PERCENT AUTO 75 % (41-73); RDW Coefficient Variation 18.2 % (11.7-14.2); RDW Standard Deviation 67.3 fL (35.1-46.3); Red Blood Cell Count 3.22 M/mm3 (3.80-5.20); White Blood Cell Count 8.22 K/mm3 (4.00-11.30)
[2020-03-02 10:18] LABS: Mean Platelet Volume 11.2 fL (9.1-12.4); Platelet Count 61 K/mm3 (150-400)
[2020-03-02 10:48] LABS: International Normalized Ratio 1.39; Prothrombin Time Results 14.6 Sec (9.7-11.5)
--- NOTE | 2020-03-02 14:38 | NUR ---
PATIENT REPORT FROM [facility] FROM [facility] PLACEMENT. NO ACUTE CONCERNS AT THIS TIME. THE PATIENT WAS GIVEN 2 OF VERSED AND 50 OF FENTANYL. SHE IS COMING BACK CURRENTLY AND THEN WILL BE RAN ON DIALYSIS.
--- NOTE | 2020-03-02 18:17 | NUR ---
SHIFT SUMMARY PATIENT IS PLEASANT, ALERT TO SELF AND FAMILY. SHE HAS HAD A LONG DAY. SHE GOT A PARACENTESIS, PERM CATH PLACEMENT, AND HER FIRST ROUND OF DIALYSIS. SHE DENIES SHORTNESS OF BREATH OR CHEST PAIN. DOES NOTE THAT HER BOTTOM IS SORE WHEN SHE SITS UP. MILD REDNESS NOTED. SHE IS INCONTINENT OF STOOL.
--- NOTE | 2020-03-03 04:48 | NUR ---
SHIFT SUMMARY PT VERY SLEEPY THIS EVENING. STATES THAT SHE "FEELS EXHAUSTED". SLEPT THROUGH MUCH OF THE NIGHT. WOULD EASILY WAKE AND ANSWER QUESTIONS APPROPRIATELY BUT WOULD SHORTLY AFTER FALL BACK ASLEEP. PERMACATH SITE WITH SLIGHT BLEEDING. REINFORCED WITH DRAIN GAUZE AND 2X2'S PER DIALYSIS NURSE INSTRUCTIONS. RINCON CATHETER IN PLACE, PATENT AND DRAINING. PT INCONTINENT OF BOWEL. BROWN UNFORMED STOOL THIS EVENING. PT'S LEGS ARE PALE WITH MILD EDEMA THROUGHOUT. BRUISING SCATTERED ALL OVER BODY, LARGE DARK BRUISES TO BILATERAL UPPER EXTREMETIES. REDNESS TO [place] AREA. NYSTATIN APPLIED. BP ON THE LOW SIDE BUT IMPROVED TO SYSTOLIC IN THE LOW 100'S. VITAL SIGNS STABLE. NO COMPLAINTS OF PAIN. WILL CONTINUE TO MONITOR AND REPORT TO DAY RN.
[2020-03-03 05:10] LABS: BASOPHILS ABSOLUTE AUTO 0.07 K/mm3 (0.00-0.23); BASOPHILS PERCENT AUTO 1 % (0-2); EOSINOPHILS ABSOLUTE AUTO 0.05 K/mm3 (0.00-0.68); EOSINOPHILS PERCENT AUTO 1 % (0-6); Hematocrit 28.7 % (33.0-51.0); Hemoglobin 9.2 g/dL (11.5-16.0); IMMATURE GRAN ABSOLUTE AUTO 0.06 K/mm3 (0.00-0.10); IMMATURE GRAN PERCENT AUTO 1 % (0-1); LYMPHOCYTES ABSOLUTE AUTO 0.57 K/mm3 (0.84-5.20); LYMPHOCYTES PERCENT AUTO 7 % (21-46); MONOCYTES ABSOLUTE AUTO 0.98 K/mm3 (0.16-1.47); MONOCYTES PERCENT AUTO 12 % (4-13); Mean Corpuscular HGB 32.4 pg (26.0-34.0); Mean Corpuscular HGB Conc 32.1 g/dL (31.5-36.5); Mean Corpuscular Volume 101 fL (80-100); NEUTROPHILS ABSOLUTE AUTO 6.44 K/mm3 (1.96-9.15); NEUTROPHILS PERCENT AUTO 79 % (41-73); Platelet Count 61 K/mm3 (150-400); RDW Coefficient Variation 18.5 % (11.7-14.2); RDW Standard Deviation 68.2 fL (35.1-46.3); Red Blood Cell Count 2.84 M/mm3 (3.80-5.20); White Blood Cell Count 8.17 K/mm3 (4.00-11.30)
[2020-03-03 05:40] LABS: Albumin, Blood 1.9 g/dL (3.4-5.0); Anion Gap 11 mmol/L (6-16); Blood Urea Nitrogen 94 mg/dL (8-24); Bun/Creatinine Ratio 31.4 (12.0-20.0); CO2, Blood 23 mmol/L (21-32); Calcium, Blood 6.8 mg/dL (8.5-10.1); Chloride, Blood 94 mmol/L (98-108); Creatinine, Blood 2.99 mg/dL (0.40-1.00); Glomerular Filtration Rate 17 (60-); Glucose, Blood 184 mg/dL (70-99); Magnesium, Blood 2.9 mg/dL (1.6-2.4); Phosphorus, Blood 5.4 mg/dL (2.5-4.9); Sodium, Blood 128 mmol/L (136-145)
[2020-03-03 08:09] LABS: HBSAG SCREEN Negative (Negative); HEP A AB, IGM Negative (Negative); HEP B CORE AB, IGM Negative (Negative); HEP C VIRUS AB <0.1 (0.0-0.9)
--- NOTE | 2020-03-03 18:19 | NUR ---
SUMMARY PT IS A/O X3 THIS AM, STATE MENTATION/THINKING IMPROVED FROM ADMIT. AMMONIA LEVEL WNL @ THIS TIME, HX CIRROHSIS, SHE HAD PARACENTESIS YESTERDAY, STATE ABD DISTENDED HOWEVER IMPROVED. GFR 17, NEW DIALYSIS PT, DR BALBUENA MANAGING, NEW PERMA CATH RCW, SHE HAD HD THIS AM, MANAGEMENT AIDE CHANGE DRSG TO PERMACATH, NO BLEEDING @ SITE TODAY. EXPLOSIVES ENGINEER STATE ARRANGING OUT PT DIALYSIS & TRANSFER TO SNF FOR THURSDAY. DR MARQUES ORDER COVID19 SEND OUT TEST, COLLECTED SENT TO LAB. PT STATE CONTINUING WEAKNESS/FATIGUE, STATE INCREASED FOLLOWING HD. BP LOW, 90'S/50'S, BP MEDS HELD THIS AM, DR MARQUES ADJUSTED. IN TO VISIT TODAY, ANSWERED QUESTIONS & UPDATED.
--- NOTE | 2020-03-03 22:07 | NUR ---
PT REPORTED THAT SHE WAS FEELING BETTER SHORTLY INTO THIS SHIFT. SHE REQUESTED SOME FOOD AND STATED THAT SHE WAS "FINALLY FEELING HUNGRY". OFFERED HER HER DINNER TRAY BUT SHE DECLINED. SHE REQUESTED SOMETHING ELSE FROM THE PANTRY. PT ATE A HALF A SANDWICH, A JELLO CUP, AND A FRUIT CUP WITH NO NAUSEA.
[2020-03-04 04:52] LABS: Hematocrit 26.5 % (33.0-51.0); Hemoglobin 8.7 g/dL (11.5-16.0)
[2020-03-04 05:07] LABS: Albumin, Blood 2.1 g/dL (3.4-5.0); Anion Gap 10 mmol/L (6-16); Blood Urea Nitrogen 70 mg/dL (8-24); Bun/Creatinine Ratio 22.4 (12.0-20.0); CO2, Blood 26 mmol/L (21-32); Calcium, Blood 7.2 mg/dL (8.5-10.1); Chloride, Blood 94 mmol/L (98-108); Creatinine, Blood 3.12 mg/dL (0.40-1.00); Glomerular Filtration Rate 16 (60-); Glucose, Blood 127 mg/dL (70-99); Magnesium, Blood 2.7 mg/dL (1.6-2.4); Phosphorus, Blood 5.3 mg/dL (2.5-4.9); Potassium, Blood 4.2 mmol/L (3.5-5.5); Sodium, Blood 130 mmol/L (136-145)
--- NOTE | 2020-03-04 05:36 | NUR ---
SHIFT SUMMARY PT HAD A DIFFICULT NIGHT. DID NOT SLEEP WELL. WAS AWAKE MOST OF THE NIGHT. PT WAS HAVING A HARD TIME GETTING COMFORTABLE IN THE BED. FREQUENT REPOSITIONING DONE. PT DID NOT FEEL STRONG ENOUGH TO ATTEMPT TO GET UP TO THE RECLINER. TYLENOL 650 MG GIVEN X 1. EXTREMETIES ELEVATED ON PILLOWS. PT CONTINUES TO FEEL VERY FATIGUED. APPETITE DID IMPROVE AND PT ATE A SANDWICH, MULTIPLE FRUIT CUPS AND MULTIPLE JELLOS AND TOLERATED WELL WITH NO NAUSEA. PT INCONTINENT OF BOWEL WITH 3 UNFORMED BROWN STOOLS THIS EVENING. PERMACATH TO R CHEST WALL. NO SIGNS OF BLEEDING THIS EVENING. RINCON CATHETER PATENT AND DRAINING. LOW OUTPUT WITH CONCENTRATED DARK URINE. VITAL SIGNS STABLE. WILL CONTINUE TO MONITOR.
--- NOTE | 2020-03-04 10:55 | NUR ---
limited echocardiogram completed
--- NOTE | 2020-03-04 18:18 | NUR ---
SUMMARY PT IS A/O X3-4 T/O DAY HOWEVER CONTINUES FATIGUED. SHE IS SOMEWHAT BRIGHTER THAN PREVIOUS DAY HOWEVER CONTINUING MALAISE. SHE HAS STAYED IN BED TODAY NOT FEELING WELL ENOUGH TO GET UP. THIS AM BP LOW 60'S/30'3. DR BALBUENA NOTIFIED ORDER 500 ML NS BOLUS & MIDODRINE, GIVEN. BP IMPROVE SOMEWHAT DURING DAY, 99/54. NO DIALYSIS TODAY. THIS AFTERNOON BP AGAIN LOW @ 85/50, DR BALBUENA NOTIFIED, NO NEW ORDERS STATE CONTINUE MIDODRINE, STATE TO MX. WILL REPORT TO NOC RN
--- NOTE | 2020-03-05 05:08 | NUR ---
SHIFT SUMMARY PT CONTINUES TO FEEL FATIGUED. PT DID HAVE A GOOD APPETITE THIS EVENING. EATING A WHOLE BOWL OF SOUP, A WHOLE SANDWICH, A YOGURT, AND A PUDDING. PT DID NOT SLEEP WELL AGAIN. AWAKE MOST OF THE NIGHT. FEELING VERY TIRED BUT UNABLE TO SLEEP. PT DECLINED GETTING OUT OF BED, STATING THAT SHE DID NOT FEEL WELL ENOUGHT TO GET OUT OF BED. BLOOD PRESSURES IMPROVED EARLY IN THE SHIFT WITH SYSTOLIC IN THE HIGH 110'S. LOWER AGAIN THIS AM WITH SYSTOLIC IN THE 90'S. PERMACATH IN R CHEST WALL. CONTINUES TO HAVE NO BLEEDING. ASIDE FROM LOWER BP'S VITAL SIGNS HAVE BEEN STABLE. PT UNCOMFORTABLE MUCH OF THE NIGHT, REQUIRING FREQUENT REPOSITIONING. MEDICATED W/ TYLENOL 650 MG X 1. WILL CONTINUE TO MONITOR AND REPORT TO DAY RN.
[2020-03-05 05:53] LABS: Hematocrit 26.4 % (33.0-51.0); Hemoglobin 8.4 g/dL (11.5-16.0)
[2020-03-05 06:15] LABS: Albumin, Blood 1.8 g/dL (3.4-5.0); Anion Gap 11 mmol/L (6-16); Blood Urea Nitrogen 82 mg/dL (8-24); Bun/Creatinine Ratio 20.3 (12.0-20.0); CO2, Blood 24 mmol/L (21-32); Calcium, Blood 6.8 mg/dL (8.5-10.1); Chloride, Blood 92 mmol/L (98-108); Creatinine, Blood 4.04 mg/dL (0.40-1.00); Glomerular Filtration Rate 12 (60-); Glucose, Blood 103 mg/dL (70-99); Magnesium, Blood 2.6 mg/dL (1.6-2.4); Potassium, Blood 4.7 mmol/L (3.5-5.5); Sodium, Blood 127 mmol/L (136-145)
--- NOTE | 2020-03-05 19:10 | NUR ---
SHIFT [place] NO ACUTE CHANGES THIS SHIFT. PATIENT IS ALERT AND ORIENTED, ABLE TO MAKE HER NEEDS KNOWN. SHE HAS BEEN WORKING ON INCREASING HER SELF CARE AND NOW FEEDS HERSELF. SHE WORKED WELL WITH OT. DIALYSIS THIS AFTERNOON, TOLERATED WELL. ONE EPISODE OF NAUSEA AND SHE WAS MEDICATED WITH IV ZOFRAN. BED LOW AND LOCKED, CALL LIGHT WITHIN REACH. REPORT GIVEN TO LALA AREVALO.
[2020-03-06 04:50] LABS: BASOPHILS ABSOLUTE AUTO 0.09 K/mm3 (0.00-0.23); BASOPHILS PERCENT AUTO 1 % (0-2); EOSINOPHILS ABSOLUTE AUTO 0.16 K/mm3 (0.00-0.68); EOSINOPHILS PERCENT AUTO 2 % (0-6); Hematocrit 25.5 % (33.0-51.0); Hemoglobin 8.1 g/dL (11.5-16.0); IMMATURE GRAN ABSOLUTE AUTO 0.03 K/mm3 (0.00-0.10); IMMATURE GRAN PERCENT AUTO 0 % (0-1); LYMPHOCYTES ABSOLUTE AUTO 1.11 K/mm3 (0.84-5.20); LYMPHOCYTES PERCENT AUTO 14 % (21-46); MONOCYTES ABSOLUTE AUTO 0.75 K/mm3 (0.16-1.47); MONOCYTES PERCENT AUTO 10 % (4-13); Mean Corpuscular HGB 32.4 pg (26.0-34.0); Mean Corpuscular HGB Conc 31.8 g/dL (31.5-36.5); Mean Corpuscular Volume 102 fL (80-100); Mean Platelet Volume 10.8 fL (9.1-12.4); NEUTROPHILS ABSOLUTE AUTO 5.73 K/mm3 (1.96-9.15); NEUTROPHILS PERCENT AUTO 73 % (41-73); Platelet Count 62 K/mm3 (150-400); RDW Coefficient Variation 19.1 % (11.7-14.2); RDW Standard Deviation 71.2 fL (35.1-46.3); White Blood Cell Count 7.87 K/mm3 (4.00-11.30)
[2020-03-06 05:07] LABS: Albumin, Blood 2.2 g/dL (3.4-5.0); Albumin/Globulin Ratio 0.6 (0.8-1.8); Bilirubin, Total 2.4 mg/dL (0.1-1.0); Bun/Creatinine Ratio 17.7 (12.0-20.0); Calcium, Blood 7.5 mg/dL (8.5-10.1); Creatinine, Blood 3.62 mg/dL (0.40-1.00); Globulin, Blood 3.8 g/dL (2.2-4.0); Magnesium, Blood 2.5 mg/dL (1.6-2.4); Phosphorus, Blood 5.5 mg/dL (2.5-4.9); Potassium, Blood 4.3 mmol/L (3.5-5.5)
--- NOTE | 2020-03-06 06:45 | NUR ---
SHIFT SUMMARY PATIENT ALERT, ANSWERS QUESTIONS APPROPRIATELY. REQUIRED 1-2 ASSIST WITH BED MOBILITY. RINCON PATENT AND DRAINING TO GRAVITY. IV PATENT AND FLUSHED. BED IN LOWEST POSITION WITH WHEELS LOCKED AND ALARM ON. CALL LIGHT WITHIN REACH. REPORT GIVEN TO ONCOMING RN.
[2020-03-06] MEDS ORDERED: ACET325 PO (14:10)
[2020-03-06] MEDS ORDERED: Nyamyc15 GM TOP (14:11)
[2020-03-06] MEDS ORDERED: MIDO5 PO (14:11)
[2020-03-06] MEDS ORDERED: CALCIUM ACETAT667 MG PO (14:11)
--- NOTE | 2020-03-06 14:43 | NUR ---
PATIENT WILL BE DISCHARGING TO [facility] FOR ADDITIONAL THERAPY. SHE WILL BE PICKED UP AND TRANSPORTED BY [facility] AT 1600. IV REMOVED.
--- NOTE | 2020-03-06 16:30 | NUR ---
Met with Yoly and Wilberto this afternoon. She is awaiting transportation to SNF to continue with rehab and HD. She reports that she is hopeful that the HD will only be short term. She reports she feels poorly during and after HD. Explained that the symptoms she was complaining about are normal side effects of having HD. Discussed quality of life and working with therapies to get stronger to be able to go home. Discussed briefly the option of long-term HD and hospice if she chose not to continue HD terminal supervisor. Her is at bedside and asks appropriate questions. He is encouraging her and telling her to try HD for awhile to see how it goes. Wilberto reports that Yoly's dad was on hospice at the end of his life in his 90s and he chose to discontinue treatments on his own. Emotional support given.
--- NOTE | 2020-03-06 17:55 | NUR ---
PATIENT WAS PICKED UP BY [facility] AND TRANFERED INTO / BY [facility] AT APPROX 1600. PATIENT TRANSPORTED TO [facility].
[2020-03-08] MEDS ORDERED: K-Dur10 MEQ PO (11:46)
[2020-03-08] MEDS ORDERED: CONSTULOSE10 GM/151 PO (11:46)
[2020-03-08] MEDS ORDERED: ATOR40TA PO (11:47)
[2020-03-08] MEDS ORDERED: TORSE20 PO (11:47)
[2020-03-08] MEDS ORDERED: METO5 PO (11:48)
== END 2020-03-06 17:19 | disposition home or self-care (01) | DRG 441 ==
LOC: ER 17:43 → MEDS 17:45
PROVIDERS: Emergency Medicine; Internal Medicine Gastroenterology; Internal Medicine Nephrology; Nurse Practitioner Acute Care; Student in an Organized Health Care Education/Training Program; ADMIT Internal Medicine
PROC: 0JH63XZ Insertion of Tunneled Vascular Access Device into Chest Subcutaneous Tissue and Fascia, Percutaneous Approach (ICD-10-PCS; principal; 2020-03-02)
PROC: 02HV33Z Insertion of Infusion Device into Superior Vena Cava, Percutaneous Approach (ICD-10-PCS; 2020-03-02)
PROC: 5A1D70Z Performance of Urinary Filtration, Intermittent, Less than 6 Hours Per Day (ICD-10-PCS; 2020-03-02)
PROC: 0W9G3ZZ Drainage of Peritoneal Cavity, Percutaneous Approach (ICD-10-PCS; 2020-03-02)
PROC: 5A1D70Z Performance of Urinary Filtration, Intermittent, Less than 6 Hours Per Day (ICD-10-PCS; 2020-03-03)
PROC: 5A1D70Z Performance of Urinary Filtration, Intermittent, Less than 6 Hours Per Day (ICD-10-PCS; 2020-03-04)
PROC: 30233N1 Transfusion of Nonautologous Red Blood Cells into Peripheral Vein, Percutaneous Approach (ICD-10-PCS; 2020-03-04)
PROC: 5A1D70Z Performance of Urinary Filtration, Intermittent, Less than 6 Hours Per Day (ICD-10-PCS; 2020-03-05)
DX: K72.00 Acute and subacute hepatic failure without coma (principal); K76.7 Hepatorenal syndrome; G92 Toxic encephalopathy; N18.6 End stage renal disease; N17.9 Acute kidney failure, unspecified; N39.0 Urinary tract infection, site not specified; I12.0 Hypertensive chronic kidney disease with stage 5 chronic kidney disease or end stage renal disease; E87.1 Hypo-osmolality and hyponatremia; E46 Unspecified protein-calorie malnutrition; N25.81 Secondary hyperparathyroidism of renal origin; C92.11 Chronic myeloid leukemia, BCR/ABL-positive, in remission; K74.60 Unspecified cirrhosis of liver; K75.81 Nonalcoholic steatohepatitis (NASH); E11.22 Type 2 diabetes mellitus with diabetic chronic kidney disease; Z99.2 Dependence on renal dialysis; Z79.4 Long term (current) use of insulin; D63.1 Anemia in chronic kidney disease; D69.59 Other secondary thrombocytopenia; K21.9 Gastro-esophageal reflux disease without esophagitis; G47.33 Obstructive sleep apnea (adult) (pediatric); K59.00 Constipation, unspecified; R79.89 Other specified abnormal findings of blood chemistry; Z74.09 Other reduced mobility
CPT/HCPCS: 36415; 36558; 36600; 49083; 51702; 71045; 76770; 76937; 80053; 80069; 80074; 81001; 82140; 82565; 82803; 83735; 83880; 84100; 84439; 84443; 85014; 85018; 85025; 85610; 85730; 86317; 87040; 88108; 88305; 92526; 92610; 93005; 93010; 93306; 93308; 93321; 93975; 96374; 96375; 97110; 97116; 97162; 97166; 97530; 97535; 99152; 99284-25; A9270; A9270-GY; C1750; C1769; C1894; G0378; J0696; J0881; J1644; J2250; J2405; J3010; J7030; J7040; J7050; P9046; U0003

== ENCOUNTER 2020-03-24 18:07 | Emergency (ER) | payer OTHER ==
[~2020-03-24] VITALS: Ht 154.9 cm; Wt 113.4 kg
[~2020-03-24 18:07] MED LIST changes: +ACET325 PO; +ALUMINUM H320 MG/5 M PO; +CALC.25 PO; +CALCIUM ACETAT667 MG PO; +CONSTULOSE10 GM/151 PO; +K-Dur10 MEQ PO; +MAG DELAY64 MG PO; +MIDO5 PO; +Nyamyc15 GM TOP; +PANT40 PO; +POLYETHYLENE PO
[2020-03-24 19:45] LABS: BASOPHILS ABSOLUTE AUTO 0.08 K/mm3 (0.00-0.23); BASOPHILS PERCENT AUTO 1 % (0-2); EOSINOPHILS ABSOLUTE AUTO 0.09 K/mm3 (0.00-0.68); EOSINOPHILS PERCENT AUTO 1 % (0-6); Hematocrit 31.1 % (33.0-51.0); IMMATURE GRAN ABSOLUTE AUTO 0.05 K/mm3 (0.00-0.10); IMMATURE GRAN PERCENT AUTO 1 % (0-1); LYMPHOCYTES ABSOLUTE AUTO 1.41 K/mm3 (0.84-5.20); LYMPHOCYTES PERCENT AUTO 20 % (21-46); MONOCYTES ABSOLUTE AUTO 1.36 K/mm3 (0.16-1.47); MONOCYTES PERCENT AUTO 19 % (4-13); Mean Corpuscular HGB 33.2 pg (26.0-34.0); Mean Corpuscular HGB Conc 32.2 g/dL (31.5-36.5); Mean Corpuscular Volume 103 fL (80-100); NEUTROPHILS ABSOLUTE AUTO 4.14 K/mm3 (1.96-9.15); NEUTROPHILS PERCENT AUTO 58 % (41-73); RDW Standard Deviation 74.5 fL (35.1-46.3); Red Blood Cell Count 3.01 M/mm3 (3.80-5.20); White Blood Cell Count 7.13 K/mm3 (4.00-11.30)
[2020-03-24 19:59] LABS: Platelet Count 28 K/mm3 (150-400)
[2020-03-24 20:08] LABS: Albumin, Blood 1.9 g/dL (3.4-5.0); Albumin/Globulin Ratio 0.3 (0.8-1.8); Bilirubin, Total 3.3 mg/dL (0.1-1.0); Bun/Creatinine Ratio 6.6 (12.0-20.0); Calcium, Blood 10.2 mg/dL (8.5-10.1); Creatinine, Blood 2.88 mg/dL (0.40-1.00); Globulin, Blood 5.7 g/dL (2.2-4.0); Potassium, Blood 3.9 mmol/L (3.5-5.5); Total Protein, Blood 7.6 g/dL (6.4-8.2)
== END 2020-03-24 22:30 | disposition home or self-care (01) ==
LOC: ER 18:07
PROVIDERS: Emergency Medicine
DX: M25.551 Pain in right hip (principal); G89.29 Other chronic pain; I12.0 Hypertensive chronic kidney disease with stage 5 chronic kidney disease or end stage renal disease; E11.22 Type 2 diabetes mellitus with diabetic chronic kidney disease; N18.5 Chronic kidney disease, stage 5; K21.9 Gastro-esophageal reflux disease without esophagitis; Z99.2 Dependence on renal dialysis; Z88.7 Allergy status to serum and vaccine; Z91.09 Other allergy status, other than to drugs and biological substances; Z79.899 Other long term (current) drug therapy; Z79.82 Long term (current) use of aspirin
CPT/HCPCS: 36415; 73502; 80053; 82140; 85025; 99284-25

== ENCOUNTER 2020-05-07 16:16 | Inpatient (IN) | payer OTHER ==
[~2020-05-07] VITALS: Ht 162.6 cm; Wt 91.5 kg
[2020-05-07 16:37] LABS: BASOPHILS ABSOLUTE AUTO 0.03 K/mm3 (0.00-0.23); BASOPHILS PERCENT AUTO 1 % (0-2); EOSINOPHILS ABSOLUTE AUTO 0.02 K/mm3 (0.00-0.68); EOSINOPHILS PERCENT AUTO 0 % (0-6); Hematocrit 26.6 % (33.0-51.0); Hemoglobin 8.5 g/dL (11.5-16.0); IMMATURE GRAN ABSOLUTE AUTO 0.03 K/mm3 (0.00-0.10); IMMATURE GRAN PERCENT AUTO 1 % (0-1); LYMPHOCYTES ABSOLUTE AUTO 1.64 K/mm3 (0.84-5.20); LYMPHOCYTES PERCENT AUTO 29 % (21-46); MONOCYTES ABSOLUTE AUTO 0.56 K/mm3 (0.16-1.47); MONOCYTES PERCENT AUTO 10 % (4-13); Mean Corpuscular HGB 35.1 pg (26.0-34.0); Mean Corpuscular Volume 110 fL (80-100); Mean Platelet Volume 10.4 fL (9.1-12.4); NEUTROPHILS ABSOLUTE AUTO 3.46 K/mm3 (1.96-9.15); NEUTROPHILS PERCENT AUTO 60 % (41-73); NRBC ABSOLUTE 0.09 K/mm3 (0.00-0.02); NRBC Auto 1.6 /100 WBC (0.0-0.2); RDW Coefficient Variation 23.3 % (11.7-14.2); RDW Standard Deviation 91.5 fL (35.1-46.3); Red Blood Cell Count 2.42 M/mm3 (3.80-5.20); White Blood Cell Count 5.74 K/mm3 (4.00-11.30)
[2020-05-07] MEDS ORDERED: SERT50 PO (16:40)
[2020-05-07] MEDS ORDERED: AURYXIA210 MG PO (16:41)
[2020-05-07] MEDS ORDERED: Midodrine HCl10 MG PO (16:42)
[2020-05-07 16:45] LABS: Platelet Count 38 K/mm3 (150-400)
[2020-05-07 17:05] LABS: Albumin, Blood 1.5 g/dL (3.4-5.0); Albumin/Globulin Ratio 0.2 (0.8-1.8); Bilirubin, Total 4.1 mg/dL (0.1-1.0); Bun/Creatinine Ratio 5.4 (12.0-20.0); Calcium, Blood 8.6 mg/dL (8.5-10.1); Creatinine, Blood 4.25 mg/dL (0.40-1.00); Globulin, Blood 6.8 g/dL (2.2-4.0); Potassium, Blood 4.2 mmol/L (3.5-5.5); Total Protein, Blood 8.3 g/dL (6.4-8.2)
[2020-05-07] MEDS ORDERED: ONDA4 PO (21:51)
[2020-05-07] MEDS ORDERED: OXYC5 PO (21:51)
[2020-05-08 05:08] LABS: BASOPHILS ABSOLUTE AUTO 0.04 K/mm3 (0.00-0.23); BASOPHILS PERCENT AUTO 1 % (0-2); EOSINOPHILS ABSOLUTE AUTO 0.13 K/mm3 (0.00-0.68); EOSINOPHILS PERCENT AUTO 2 % (0-6); Hematocrit 23.7 % (33.0-51.0); Hemoglobin 7.5 g/dL (11.5-16.0); IMMATURE GRAN ABSOLUTE AUTO 0.04 K/mm3 (0.00-0.10); IMMATURE GRAN PERCENT AUTO 1 % (0-1); LYMPHOCYTES ABSOLUTE AUTO 1.33 K/mm3 (0.84-5.20); LYMPHOCYTES PERCENT AUTO 19 % (21-46); MONOCYTES ABSOLUTE AUTO 0.57 K/mm3 (0.16-1.47); MONOCYTES PERCENT AUTO 8 % (4-13); Mean Corpuscular HGB 34.1 pg (26.0-34.0); Mean Corpuscular HGB Conc 31.6 g/dL (31.5-36.5); Mean Corpuscular Volume 108 fL (80-100); Mean Platelet Volume 11.3 fL (9.1-12.4); NEUTROPHILS ABSOLUTE AUTO 4.78 K/mm3 (1.96-9.15); NEUTROPHILS PERCENT AUTO 69 % (41-73); NRBC ABSOLUTE 0.04 K/mm3 (0.00-0.02); NRBC Auto 0.6 /100 WBC (0.0-0.2); RDW Coefficient Variation 22.6 % (11.7-14.2); RDW Standard Deviation 87.6 fL (35.1-46.3); White Blood Cell Count 6.89 K/mm3 (4.00-11.30)
[2020-05-08 05:30] LABS: Albumin, Blood 1.6 g/dL (3.4-5.0); Anion Gap 7 mmol/L (6-16); Blood Urea Nitrogen 24 mg/dL (8-24); CO2, Blood 33 mmol/L (21-32); Calcium, Blood 8.1 mg/dL (8.5-10.1); Chloride, Blood 100 mmol/L (98-108); Creatinine, Blood 4.77 mg/dL (0.40-1.00); Glomerular Filtration Rate 10 (60-); Glucose, Blood 175 mg/dL (70-99); Magnesium, Blood 2.1 mg/dL (1.6-2.4); Potassium, Blood 3.1 mmol/L (3.5-5.5); Sodium, Blood 140 mmol/L (136-145)
[2020-05-08 05:48] LABS: Platelet Count 41 K/mm3 (150-400)
--- NOTE | 2020-05-08 05:49 | NUR ---
ADMIT & END OF SHIFT SUMMARY PT TO UNIT FROM ED, NOTED TO BE SOMEWHAT LETHARGIC. THIS HAS IMPROVED MUCH T'/O SHIFT. PT MAKING NEEDS KNOWN AND HAVING CONVERSATIONS NOW. PT'S BP HAVE HYPOTENSIVE BUT STABLE THIS SHIFT. PT ARRIVED ON [id number], THIS HAS CONTINUED, CBG'S STABLE AND RISING. PT ARRIVED ON 2LNC, PT NOW ON RA. PT INCOMNTINENT OF BOWELS UPON ADMIT, CLEANED. PRESSURE INJURY STAGE 1V NOTED TO SACRUM, PICTURES PLACED IN CHART, WOUND CLEANED AND DRESSED WITH MEPILEX. LACTULOSE GIVEN THIS SHIFT ORDERED. PT HAS BEEN RESTING SOUNDLY T/O SHIFT POST ADMIT. MICHAELLE LCONTINUE TO MONITOR UNTIL SHIFT CHANGE.
--- NOTE | 2020-05-08 12:47 | NUR ---
Spiritual care visit conducted. Patient is lying in bed and alert. Patient answers me in very short sentences. When I asked if patient knows what her medical issues are she says, "Not really." When I asked if she has any family in the area she says, "Not really." When I asked patient if her spiritual beliefs were Adventist, Yazdanism, Jain, Buddist or any other she said, "All." I asked if I could pray for patient and she said, "Please." I gladly provided prayer. I asked patient if I could get her anything or do anything for her and she said, "No." I will continue to remain available to patient and family.
--- NOTE | 2020-05-08 17:31 | NUR ---
SHIFT SUMMARY PT ALERT AND ORIENTED, BUT ASLEEP IF NO ONE IS IN THE ROOM. VS STABLE. O2 SATS REMAIN ABOVE 90% ON RA. BP STABLE. HR NSR. PT DENIES ANY PAIN. PT HAD DIALYSIS THIS AFTERNOON. PT REPOSITIONED Q2H. MEPILEX TO COCCYX ULCER. PT HAVING LIQUID BM DUE TO LACTULOSE. CBG HAVE BEEN STABLE. WILL CONTINUE TO MONITOR AND REPORT TO ONCOMING RN. CALL LIGHT IN REACH.
[2020-05-09 04:27] LABS: BASOPHILS ABSOLUTE AUTO 0.04 K/mm3 (0.00-0.23); BASOPHILS PERCENT AUTO 1 % (0-2); EOSINOPHILS ABSOLUTE AUTO 0.13 K/mm3 (0.00-0.68); EOSINOPHILS PERCENT AUTO 2 % (0-6); Hematocrit 30.5 % (33.0-51.0); IMMATURE GRAN ABSOLUTE AUTO 0.04 K/mm3 (0.00-0.10); IMMATURE GRAN PERCENT AUTO 1 % (0-1); LYMPHOCYTES ABSOLUTE AUTO 1.36 K/mm3 (0.84-5.20); LYMPHOCYTES PERCENT AUTO 21 % (21-46); MONOCYTES ABSOLUTE AUTO 0.67 K/mm3 (0.16-1.47); MONOCYTES PERCENT AUTO 10 % (4-13); Mean Corpuscular HGB 34.2 pg (26.0-34.0); Mean Corpuscular HGB Conc 32.8 g/dL (31.5-36.5); Mean Corpuscular Volume 105 fL (80-100); Mean Platelet Volume 11.2 fL (9.1-12.4); NEUTROPHILS ABSOLUTE AUTO 4.37 K/mm3 (1.96-9.15); NEUTROPHILS PERCENT AUTO 66 % (41-73); NRBC ABSOLUTE 0.05 K/mm3 (0.00-0.02); NRBC Auto 0.8 /100 WBC (0.0-0.2); RDW Coefficient Variation 21.9 % (11.7-14.2); RDW Standard Deviation 80.2 fL (35.1-46.3); Red Blood Cell Count 2.92 M/mm3 (3.80-5.20); White Blood Cell Count 6.61 K/mm3 (4.00-11.30)
[2020-05-09 04:31] LABS: Platelet Count 38 K/mm3 (150-400)
[2020-05-09 04:44] LABS: Albumin, Blood 1.6 g/dL (3.4-5.0); Albumin/Globulin Ratio 0.3 (0.8-1.8); Bilirubin, Total 9.4 mg/dL (0.1-1.0); Bun/Creatinine Ratio 5.4 (12.0-20.0); Calcium, Blood 7.9 mg/dL (8.5-10.1); Creatinine, Blood 3.55 mg/dL (0.40-1.00); Globulin, Blood 6.3 g/dL (2.2-4.0); Phosphorus, Blood 2.5 mg/dL (2.5-4.9); Potassium, Blood 3.9 mmol/L (3.5-5.5); Total Protein, Blood 7.9 g/dL (6.4-8.2)
--- NOTE | 2020-05-09 05:23 | NUR ---
SHIFT SUMMARY PT SLEEPING IN ROOM COMFORTABLY AT THIS TIME. NO ACUTE CHANGES IN STATS T/O NIGHT. PT SLEPT WELL AND DENIED NEEDS. PT WAS TURNED Q2HR AND HIPS FLOATED FOR WOUND ON COCCYX. RESP EVEN ON RA W/ SATS >92%. PT DENIED NEEDS T/O NIGHT. DENOED CP OR SOB. BLOOD SUGARS CHECKED Q4HR. REMAINED STABLE. CALL LIGHT IN REACH.
--- NOTE | 2020-05-09 16:36 | NUR ---
SHIFT NOTE PT WITH VERY FLAT AFFECT, ANSWERS QUESTIONS APPROPRIATELY BUT IS VERYS SLOW TO A/O X2 TO PERSON AND PLACE. PT HAS BEEN TO DIALYSIS TODAY WHICH SHE TOLERATED WELL. PT IS ABLE TO ASSIST WITH TURNING AND ATTENDS CHANGES. PT HAS BEEN TURNED Q2. PT REMAINS HYPOTENSIVE T/O THE DAY DESPITE ADMINISTRATION OF MIDODRENE. PT DID NOT HAVE AN APPETITE TO EACH LUNCH, BUT DID EAT BREAKFAST. FAMILY HAS BEEN IN TO SEE PT TODAY AND UPDATED ON STATUS CHANGE TO MEDICAL STATUS
--- NOTE | 2020-05-09 18:52 | NUR ---
180 RECEIVED PT TO RM VIA BED FROM PCU 2. RECEIVED REPORT FROM MAURICIO AREVALO. PT SITTING UP IN BED WITH DINNER TRAY. PT ASSISTED WITH PROTEIN NUTRITION. PT UNABLE TO EAT STEW MEAT. [facility] SOFT DIET ORDERED. REPOSITIONED FOR COMFORT. REPORT GIVEN TO MARIA GUADALUPE AREVALO.
--- NOTE | 2020-05-10 04:41 | NUR ---
SHIFT SUMMARY ADMITTED FOR ACUTE METABOLIC ENCEPHALOPATHY/HYPOGLYCEMIA. DNR CODE. NEEDS MEDICAID PROCESS STARTED SHE IS NOW SELF-PAY. SHE IS PLACEMENT VS. DC W/HH FOR DISCHARGE. SHE HAS BEEN ANSWERING MY QUESTIONS WITH SINGLE WORD ANSWERS, SOMEWHAT WITHDRAWN. SHE HAS BEEN KNOWN TO POCKET HER MEDS OR EVEN SPIT THEM OUT. SHE REFUSED HER LACTULOSE. SHE DID PULL OUT HER IV AND REFUSE A NEW ONE. DUE TO CONCERN OVER HER PERMACATH, I PUT HER IN SOFT WRIST RESTRAINTS. SHE HAS BEEN HYPOTENSIVE THIS SHIFT, I DID GIVE HER PRN MIDODRINE. SHE IS A DIALYSIS PT.
[2020-05-10 05:10] LABS: BASOPHILS ABSOLUTE AUTO 0.02 K/mm3 (0.00-0.23); BASOPHILS PERCENT AUTO 0 % (0-2); EOSINOPHILS ABSOLUTE AUTO 0.02 K/mm3 (0.00-0.68); EOSINOPHILS PERCENT AUTO 0 % (0-6); Hematocrit 30.2 % (33.0-51.0); Hemoglobin 9.6 g/dL (11.5-16.0); IMMATURE GRAN ABSOLUTE AUTO 0.05 K/mm3 (0.00-0.10); IMMATURE GRAN PERCENT AUTO 1 % (0-1); LYMPHOCYTES ABSOLUTE AUTO 1.08 K/mm3 (0.84-5.20); LYMPHOCYTES PERCENT AUTO 17 % (21-46); MONOCYTES ABSOLUTE AUTO 0.54 K/mm3 (0.16-1.47); MONOCYTES PERCENT AUTO 9 % (4-13); Mean Corpuscular HGB 33.4 pg (26.0-34.0); Mean Corpuscular HGB Conc 31.8 g/dL (31.5-36.5); Mean Corpuscular Volume 105 fL (80-100); Mean Platelet Volume 11.2 fL (9.1-12.4); NEUTROPHILS ABSOLUTE AUTO 4.62 K/mm3 (1.96-9.15); NEUTROPHILS PERCENT AUTO 73 % (41-73); NRBC ABSOLUTE 0.17 K/mm3 (0.00-0.02); NRBC Auto 2.7 /100 WBC (0.0-0.2); RDW Coefficient Variation 21.7 % (11.7-14.2); RDW Standard Deviation 80.4 fL (35.1-46.3); Red Blood Cell Count 2.87 M/mm3 (3.80-5.20); White Blood Cell Count 6.33 K/mm3 (4.00-11.30)
[2020-05-10 05:28] LABS: Platelet Count 43 K/mm3 (150-400)
[2020-05-10 05:44] LABS: Albumin, Blood 1.5 g/dL (3.4-5.0); Albumin/Globulin Ratio 0.2 (0.8-1.8); Bilirubin, Total 7.4 mg/dL (0.1-1.0); Bun/Creatinine Ratio 5.5 (12.0-20.0); Calcium, Blood 8.3 mg/dL (8.5-10.1); Creatinine, Blood 3.28 mg/dL (0.40-1.00); Globulin, Blood 6.3 g/dL (2.2-4.0); Magnesium, Blood 1.8 mg/dL (1.6-2.4); Phosphorus, Blood 1.8 mg/dL (2.5-4.9); Potassium, Blood 4.2 mmol/L (3.5-5.5); Total Protein, Blood 7.8 g/dL (6.4-8.2)
--- NOTE | 2020-05-10 11:22 | NUR ---
Spoke with [employer] Savannah prior to Pt visit and discussed case. Pt resting in bed upon arrival and is A&OX2. Pt unable to verbalize appropriate reason for hospital stay and current year. Pt reports 6/10 pain in her abdomen. Assisted DIRECTOR DRUG SAFETY with repositioning Pt. Pt currently in soft restraints. Pt attempts to engage in conversation and appears to have difficulty. Abdomen is firm and distended. Pt is agreeable for continued Palliative Care visits. Spoke with Bedside RN Natalia and discussed case. Spoke with Dr Holcomb, reported Pt's discomfort and abdomen distention. Dr Holcomb plans to have conversation with spouse regarding goals of care. Called and spoke with unit manager convenience stores Radha at [facility]. Radha reports staff at [facility] and Pt's PCP have engaged in conversations regarding goals of care. It appears spouse is having difficulty with Pt's condition and may be in denial. Radha will fax a copy of Pt's POLST to Palliative Care. Palliative Care will remain available for supportive and therapeutic visits.
--- NOTE | 2020-05-10 17:13 | NUR ---
PT AOX1 AND HAS CONFUSION. PT HAS BEEN IN BED ALL DAY AND NEEDS REPOSITIONED EVERY COUPLE HOURS. PT DOESN'T REALLY USE CALL LIGHT. PT DOES TRY TO HELP TURN. HER MEPELEX HAS BEEN CHANGED X2 TODAY AND WOUND IN GLUTEAL CREASE CLEANED WITH WOUND PRODUCTION METAL SPRAYER. PT DENIED NEEDING PAIN MED AND WAS TREATED ONCE FOR EMESIS AFTER EATING BREAKFAST PER EMAR. CODE STATUS CHANGED FROM DNR TO FULL CODE. WILL CONTINUE TO MONITOR.
--- NOTE | 2020-05-10 17:37 | NUR ---
Spiritual care intial note: Yoly was slow to respond, but did engae with me. She told me she feels like she is nearind end-of-life and is fearful. When asked what she is most fearful of, she stated, "Leaving my sons." She was often tearful. She appears quite weak/deconditioned. She appeared to benefit from emotional affirmation and gentle mortgage counselor. Assured her of God's love and attention and provided prayer to good effect. Shovel Oiler services will remain available.
--- NOTE | 2020-05-10 17:44 | NUR ---
IV WAS PLACE START OF SHIFT AND THEN INFILTRATED IMMEDIATELY. CALLED CHARGE NURSE AND EVEN WITH ULTRA SOUND WAS UNABLE TO GET IV PLACED.
--- NOTE | 2020-05-11 03:42 | NUR ---
SHIFT SUMMARY ADMITTED FOR ACUTE METABOLIC ENCEPHALOPATHY DUE TO HYPOGLYCEMIA. FULL CODE. SHE IS A HEMODIALYSIS PT. PLAN IS TO BEGIN MEDICAID PROCESS, AND THEN PLACEMENT TO A FACILITY. PT WAS COOPERATIVE WITH CARE AND TAKING MEDICATIONS THIS SHIFT. WE ARE DOING Q 2 TURNS. A PRESSURE ULCER (SPLIT SKIN), STAGE 2, IS COVERED IN MEPILEX ON HER COCCYX. A PARACENTESIS IS BEING CONSIDERED FOR ASCITES. SHE IS SLOW TO RESPOND, BUT IS RESPONDING APPROPRIATELY WITH ONE OR TWO WORDS.
[2020-05-11 05:06] LABS: Hematocrit 31.4 % (33.0-51.0); Hemoglobin 10.4 g/dL (11.5-16.0); Mean Corpuscular HGB 34.4 pg (26.0-34.0); Mean Corpuscular HGB Conc 33.1 g/dL (31.5-36.5); Mean Corpuscular Volume 104 fL (80-100); NRBC ABSOLUTE 0.09 K/mm3 (0.00-0.02); NRBC Auto 4.3 /100 WBC (0.0-0.2); RDW Coefficient Variation 21.2 % (11.7-14.2); RDW Standard Deviation 78.4 fL (35.1-46.3); Red Blood Cell Count 3.02 M/mm3 (3.80-5.20); White Blood Cell Count 2.07 K/mm3 (4.00-11.30)
[2020-05-11 05:08] LABS: Mean Platelet Volume 12.1 fL (9.1-12.4)
[2020-05-11 05:10] LABS: Platelet Count 46 K/mm3 (150-400)
[2020-05-11 05:52] LABS: Albumin, Blood 1.4 g/dL (3.4-5.0); Albumin/Globulin Ratio 0.2 (0.8-1.8); Bilirubin, Total 6.2 mg/dL (0.1-1.0); Bun/Creatinine Ratio 6.1 (12.0-20.0); Calcium, Blood 8.4 mg/dL (8.5-10.1); Creatinine, Blood 4.25 mg/dL (0.40-1.00); Globulin, Blood 6.3 g/dL (2.2-4.0); Magnesium, Blood 1.8 mg/dL (1.6-2.4); Phosphorus, Blood 2.2 mg/dL (2.5-4.9); Potassium, Blood 3.7 mmol/L (3.5-5.5); Total Protein, Blood 7.7 g/dL (6.4-8.2)
[2020-05-11 06:59] LABS: BAND PERCENT MAN 14 % (0-8); BASOPHILS PERCENT MAN 0 % (0-2); EOSINOPHILS ABSOLUTE MAN 0.08 K/mm3 (0.00-0.68); EOSINOPHILS PERCENT MAN 4 % (0-6); LYMPHOCYTES ABSOLUTE MAN 0.57 K/mm3 (0.84-5.20); LYMPHOCYTES PERCENT MAN 28 % (21-46); MONOCYTES ABSOLUTE MAN 0.12 K/mm3 (0.16-1.47); MONOCYTES PERCENT MAN 6 % (4-13); NEUTROPHILS ABSOLUTE MAN 1.28 K/mm3 (1.96-9.15); SEG NEUTROPHILS PERCENT MAN 48 % (41-73); TOTAL CELLS COUNTED 50
[2020-05-11 08:38] LABS: Free Thyroxine 0.72 ng/dL (0.70-1.60)
[2020-05-11 08:45] LABS: Glucose, Blood 18 mg/dL (70-99)
[2020-05-11 09:04] LABS: Hematocrit 29.8 % (33.0-51.0); Hemoglobin 9.6 g/dL (11.5-16.0); Mean Corpuscular HGB 34.9 pg (26.0-34.0); Mean Corpuscular HGB Conc 32.2 g/dL (31.5-36.5); Mean Corpuscular Volume 108 fL (80-100); Mean Platelet Volume 10.3 fL (9.1-12.4); NRBC ABSOLUTE 0.17 K/mm3 (0.00-0.02); NRBC Auto 5.1 /100 WBC (0.0-0.2); RDW Coefficient Variation 21.4 % (11.7-14.2); RDW Standard Deviation 82.3 fL (35.1-46.3); Red Blood Cell Count 2.75 M/mm3 (3.80-5.20); White Blood Cell Count 3.36 K/mm3 (4.00-11.30)
[2020-05-11 09:10] LABS: Albumin, Blood 1.2 g/dL (3.4-5.0); Albumin/Globulin Ratio 0.2 (0.8-1.8); Bun/Creatinine Ratio 6.1 (12.0-20.0); Calcium, Blood 8.3 mg/dL (8.5-10.1); Creatinine, Blood 4.44 mg/dL (0.40-1.00); Globulin, Blood 5.5 g/dL (2.2-4.0); Potassium, Blood 3.2 mmol/L (3.5-5.5); Total Protein, Blood 6.7 g/dL (6.4-8.2)
[2020-05-11 09:20] LABS: Platelet Count 41 K/mm3 (150-400)
[2020-05-11 09:42] LABS: BAND PERCENT MAN 12 % (0-8); BASOPHILS PERCENT MAN 0 % (0-2); EOSINOPHILS ABSOLUTE MAN 0.03 K/mm3 (0.00-0.68); EOSINOPHILS PERCENT MAN 1 % (0-6); LYMPHOCYTES ABSOLUTE MAN 0.33 K/mm3 (0.84-5.20); LYMPHOCYTES PERCENT MAN 10 % (21-46); MONOCYTES ABSOLUTE MAN 0.06 K/mm3 (0.16-1.47); MONOCYTES PERCENT MAN 2 % (4-13); NEUTROPHILS ABSOLUTE MAN 2.92 K/mm3 (1.96-9.15); SEG NEUTROPHILS PERCENT MAN 75 % (41-73); TOTAL CELLS COUNTED 100
[2020-05-11 10:24] LABS: Source, Urine Catheter
[2020-05-11 10:57] LABS: Appearance, Urine Turbid (Clear); Blood, Urine 5+ (Neg); Color, Urine Brown (P-Yellow); Glucose Qualitative, Urine Neg (Neg); Ketones, Urine 1+ (Neg); Leukocyte Esterase, Urine Neg (Neg); Nitrite, Urine Neg (Neg); Protein, Urine 3+ (Neg); Specific Gravity, Urine 1.025 (1.003-1.022); Urobilinogen, Urine NORM (Normal); pH, Urine 6.5 (5.0-8.0)
[2020-05-11 11:50] LABS: Bilirubin, Urine 1+ (Neg)
--- NOTE | 2020-05-11 11:53 | NUR ---
PT STARTED SHIFT WITH LOW CBGs AND A RAPID CALLED PLEASE REFER TO YARN CONDITIONER NOTE. PT WAS THEN MOVE DOWN TO PCU 3 AND REPORT WAS GIVEN AT BEDSIDE. PT REMAIN ALERT AND WAS ABLE TO DRINK AND SWALLOW EVEN WHEN HER CBGs WERE LOW. PT WAS MADE A DNR DURING RAPID PER DR DAMIR GARIBAY.
[2020-05-11 11:54] LABS: Red Blood Cells, Urine TNTC /hpf (0-2); White Blood Cells, Urine 0-2 /hpf (0-5)
[2020-05-11 11:55] LABS: Bacteria Few /hpf; Squamous Epithelial Cells Rare /hpf (Few)
[2020-05-11 11:56] LABS: Amorphous Light (0-Heavy); Renal Epithelial Mod /hpf (0-Rare); Transitional Epithelial Cells Mod /hpf (0-Rare)
--- NOTE | 2020-05-11 11:58 | NUR ---
UPDATE: Pt arrived to room PCU 3 from medical floor at 0856. Pt was lathargic but responsive. Pt was hypotensive at that time with NS bolus running per orders. CBG was stable just prior to transfer to unit. at approx 1010 pt CBG decreased to 51, BP was still hypotensive after bolus was completed. Another bolus was started and IV push D50 was given. Physician was notified of these VS and of critical lab values. Orders obtained. At around 1150 Pt BP had not improved and CBG was still low. PHysician spoke with Pt and comfort care orders were placed. Pt was made comfortable. Will treat and care for pt to provide comfort throughout the shift.
[2020-05-11 12:06] LABS: Yeast/Fungi Urine Many /hpf
--- NOTE | 2020-05-11 14:37 | NUR ---
Patient is lying on her side and opens her eyes to the sound of her name. Patient does not respond to questions until I asked if I could pray for her. Patient says, "Yes." I gladly provide prayer. Patient whispers, "Amen." I get no other response after that. I sit with patient for a couple of moments. I will continue to remain available to patient and family.
--- NOTE | 2020-05-11 18:20 | NUR ---
final discharge: Pt passed at 1820 with at bedside. Adelatamika Bertrandjosé with palliative care with and she spoke on phone with Son. Nursing Sup notified, physicians notified.
--- NOTE | 2020-05-11 18:57 | NUR ---
pt comfortable brething pattern changes noted. came in pt continued to decline and . at bedside roxinol given for labored difficut breathing. had me call his children her two sons came in. pt cleaned and quilt placed they declined chaplian. theraputic time with family assisted with funneral plans.
[2020-05-12 07:11] LABS: C-PEPTIDE, SERUM 22.6 ng/mL (1.1-4.4)
--- NOTE | 2020-05-14 11:32 | NUR ---
Palliative note amendment. Time stanmp on not was after patient had expiered. Spenser called me to speak with son on phone. Note started approx 1805.
== END 2020-05-11 18:20 | DRG 871 ==
LOC: ER 16:16 → PCU 16:17 → MEDS 05-09 18:01 → PCU 05-11 08:57
PROVIDERS: Emergency Medicine; Family Medicine; Internal Medicine Endocrinology, Diabetes & Metabolism; ADMIT Internal Medicine
PROC: 02HV33Z Insertion of Infusion Device into Superior Vena Cava, Percutaneous Approach (ICD-10-PCS; principal; 2020-05-09)
DX: A41.51 Sepsis due to Escherichia coli [E. coli] (principal); R65.21 Severe sepsis with septic shock; N18.6 End stage renal disease; N17.9 Acute kidney failure, unspecified; I12.0 Hypertensive chronic kidney disease with stage 5 chronic kidney disease or end stage renal disease; K76.6 Portal hypertension; D63.1 Anemia in chronic kidney disease; K72.90 Hepatic failure, unspecified without coma; E16.2 Hypoglycemia, unspecified; D69.6 Thrombocytopenia, unspecified; R62.7 Adult failure to thrive; K75.81 Nonalcoholic steatohepatitis (NASH)
CPT/HCPCS: 36415; 36430; 71045; 76705; 80053; 80069; 81001; 82140; 82947; 83525; 83527; 83605; 83735; 84100; 84206; 84439; 84443; 84681; 85025; 86850; 86900; 86901; 86923; 87040; 87077; 87086; 87106; 87186; 93005; 93010; 96361; 96374; 96375; 99285-25; A9270; A9270-GY; G0378; J0696; J0881; J1610; J2270; J2405; J3370; J7030; J7050; J7060; J7799; P9016